=== PATIENT | female | born 1970 | race Caucasian/White ===

== ENCOUNTER 2020-08-12 13:26 | Outpatient (REF) | payer OTHER, SELFPAY ==
--- NOTE | ~2020-08-12 | MM_ITS ---
EXAMINATION: MM DIAGNOSTIC DIGITAL BREAST TOMOSYNTHESIS, BILATERAL US DIAGNOSTIC ULTRASOUND BREAST, LEFT CLINICAL INFORMATION: Due for yearly. Also ultrasound follow-up small complicated cyst anterior 1:00 position, likely apocrine metaplasia. The lifetime risk of breast cancer based on the Tyrer-Cuzick Model is 8%. COMPARISON: Mammography: 08/13/2019, 02/09/2019, 07/09/2018, 06/19/2018, 06/11/2017, 06/01/2016; targeted left breast ultrasound 02/09/2019, 08/13/2019. TECHNIQUE: Digital breast tomosynthesis is performed in both the craniocaudal and mediolateral oblique views along with computer-aided detection (CAD). Synthesized 2D images are generated from the tomosynthesis. Ultrasound left breast is targeted to the retroareolar upper outer breast. Grayscale imaging and color Doppler are performed without and with harmonics. FINDINGS: There are scattered areas of fibroglandular density (ACR BI-RADS breast composition Category b). There is no significant mass or architectural abnormality. No developing density. No abnormal calcifications. The axilla are unremarkable. The skin contours are smooth. Ultrasound left breast demonstrates a small stable complicated cyst 1:00 position 2 cm from nipple measuring only 0.5 x 0.3 cm. Again, there are avascular internal echoes of similar distribution. Margins are circumscribed. There is no associated internal or peripheral color flow. Results are discussed with the patient at time of visit. MM/MM tomosynthesis diagnostic BI IMPRESSION: 1. Mammography without significant change from prior studies. 2. Stable mildly complicated cyst anterior left breast 5 x 3 mm. ASSESSMENT: BI-RADS 2: Benign RECOMMENDATION: Routine annual mammography screening. This patient's information was entered into a reminder system with a target due date for their next mammogram.
== END 2020-08-12 13:27 | disposition home or self-care (01) ==
LOC: HO.MAMMO 13:26
PROVIDERS: PCP Family Medicine; Visit Provider Family Medicine
DX: N60.02 Solitary cyst of left breast (principal)
CPT/HCPCS: 76642; 77062; 77066

== ENCOUNTER 2020-11-03 11:49 | Outpatient (REF) | payer OTHER, SELFPAY ==
--- NOTE | ~2020-11-03 | US_ITS ---
EXAMINATION: US VENOUS ULTRASOUND WITH DOPPLER LOWER EXTREMITY, RIGHT CLINICAL INFORMATION: Pain COMPARISON: None TECHNIQUE: Ultrasound of the deep veins is performed from the hip to the calf with compression sonography and color and pulse Doppler assessment. Spectral analysis with color-flow imaging is performed. FINDINGS: There is normal venous compression and respiratory variation and augmented flow. The visualized common femoral vein, superficial femoral vein, profunda femoral vein, popliteal vein, and the trifurcation region shows no evidence of deep venous thrombosis. There is no significant popliteal fossa cyst. US/US venous duplex LE RT IMPRESSION: No DVT demonstrated in the right lower extremity.
--- NOTE | ~2020-11-03 | XR_ITS ---
EXAMINATION: XR KNEE, RIGHT CLINICAL INFORMATION: Pain right knee. COMPARISON: None. TECHNIQUE: 4 views of the right knee. FINDINGS: There is mild loss of medial and patellofemoral compartment joint space. There is a small anterior suprapatellar enthesophytes at the quadriceps tendon insertion. No abnormal joint effusion or loose body seen. No bony erosive changes. XR/XR knee RT 2V IMPRESSION: Mild degenerative changes medial and patellofemoral compartments. Small superior patellar enthesophyte. No abnormal joint effusion seen.
== END 2020-11-03 11:50 | disposition home or self-care (01) ==
LOC: HO.US 11:49
PROVIDERS: PCP Family Medicine; Visit Provider Emergency Medicine
DX: M79.604 Pain in right leg (principal); M25.561 Pain in right knee
CPT/HCPCS: 73560; 93971

== ENCOUNTER 2021-01-20 08:00 | Outpatient (REF) | payer OTHER, SELFPAY ==
--- NOTE | ~2021-01-20 | XR_ITS ---
EXAMINATION: XR KNEE, RIGHT CLINICAL INFORMATION: Knee pain COMPARISON: Radiographs right knee 11/03/2020 TECHNIQUE: Axial patellar view is performed. FINDINGS: The patellar is seated in the trochlear notch with no tilting and lateralization. There is no focal joint narrowing or erosive change or chondrocalcinosis. Normal bony mineralization. XR/XR knee RT 2V IMPRESSION: No patellar tilting and lateralization. No erosive changes patellofemoral joint.
== END 2021-01-20 08:01 | disposition home or self-care (01) ==
LOC: HO.HOSX 08:00
PROVIDERS: Visit Provider Physician Assistant
DX: M17.11 Unilateral primary osteoarthritis, right knee (principal)
CPT/HCPCS: 20610; 73560; 99202; J1040

== ENCOUNTER → 2021-03-03 09:59 | Outpatient (BNVA) | payer OTHER, SELFPAY | PROVIDERS: Visit Provider Physician Assistant | DX: M17.11 Unilateral primary osteoarthritis, right knee (principal) | CPT/HCPCS: 99212 ==

== ENCOUNTER 2021-03-14 13:00 | Outpatient (RCR) | payer OTHER, SELFPAY ==
--- NOTE | 2021-02-09 16:44 | MHC.PT.EP ---
[facility] [place] Office [place] Office [place] Office [address] [phone] F: [phone] F: [phone] F: [phone] F: [phone] Physical Therapy Plan of Care Date of Evaluation: Date of Surgery: Diagnosis: unilateral OA of R knee. Assessment: pt is a 50/yo F present to clinic for eval/treatment of unilateral OA of R knee. S/S are consistent w/ R knee dysfunction resulting in significantly decreased tolerance for WB activities like standing and ambulating, decreased reagan for seating for duration, difficulty with kneeling, bending, lifting objects off of the floor, and performing any household activities secondary to decreased ROM of R knee, decreased hip/knee strength, and patellar maltracking/tilt. Pt is deemed an appropriate candidate to receive skilled PT in order to address her physical limitations to improve her functional ability. Frequency and Duration: The patient will be seen 2 x / wk x 5 wks. Short Term Goals: initiate HEP I w/ compliance pt will reagan sitting for 30 mins w/ minimal to no difficulty pt will be able to stand for 30 mins w/ minimal to no difficulty Mcfp Goals: pt will be able to walk 2 blocks w/ mod to little bit of difficulty; initial - extreme difficulty or unable to perform (LEFI) pt will be able to negotiate 1 flight of stairs with little to no difficulty or pain; initial quite a bit of difficulty (LEFI) pt will be able to perform her usual work with little to no difficulty; initial quite a bit of difficulty (LEFI) pt will reagan standing for over an hour with mod to little bit of difficulty; initial extreme difficulty or unable to perform (LEFI) Treatment Plan: Modalities to reduce pain, spasms and effusion. Manual therapy to restore motion and function. Therapeutic exercise to improve strength and flexibility. Neuromuscular re-education for posture and balance. Therapeutic activities to return to functional activities of daily living. Electronically signed by: Ismael rGeene PT. Please sign and return to therapist. Thank you for your referral.
--- NOTE | 2021-10-30 11:21 | MHC.PT.DC ---
[facility] [place] Office [place] [facility] [place] [facility] [address] Ino Lockett [address] [phone] F: [phone] F: [phone] F: [phone] F: [phone] Physical Therapy Discharge Report Diagnosis: unilateral OA of R knee. Date of Surgery: Date of Evaluation: 02/09/21 Date of Discharge: 06/02/21 Treatments to Date: 4 Cancellations to Date: No Shows to Date: Discharge Status: Patient Elected to Stop Discharge Summary: Pt stopped treatment after 03/14 appointment. 03/14: pt performed her the/ex standing - pt reported minimal pain/discomfort and responded with appropriate fatigue. for next visit, cont progressing standing and stair activities. Pt expressed concerns over her ability to fly on her vacation d/t increased knee pain while sitting; Pt advised to contact her orto PA for any notes for accommodations; Pt in agreement. Electronically signed by: Osvaldo Navarrete PT Please sign and return to therapist. Thank you for your referral.
== END 2021-10-30 11:22 | disposition home or self-care (01) ==
LOC: HO.PTCHIC 13:00
PROVIDERS: PCP Family Medicine; Visit Provider Physician Assistant
DX: M17.11 Unilateral primary osteoarthritis, right knee (principal)
CPT/HCPCS: 97014; 97110; 97116; 97140; 97161

== ENCOUNTER 2021-08-17 12:27 | Outpatient (REF) | payer OTHER, SELFPAY ==
--- NOTE | ~2021-08-17 | MM_ITS ---
EXAMINATION: MM SCREENING DIGITAL BREAST TOMOSYNTHESIS, BILATERAL CLINICAL INFORMATION: Screening. Asymptomatic. The lifetime risk of breast cancer based on the Tyrer-Cuzick Model is 7%. COMPARISON: Mammography:08/12/2020 and studies dating back to 01/27/2013. TECHNIQUE: Digital breast tomosynthesis is performed in both the craniocaudal and mediolateral oblique views along with computer-aided detection (CAD). Synthesized 2D images are generated from the tomosynthesis. FINDINGS: There are scattered areas of fibroglandular density (ACR BI-RADS breast composition Category b). There is waxing and waning of circumscribed densities within the left breast with multiple ultrasounds in the past demonstrating simple and mildly complex cysts. No new suspicious grouping of calcifications or region of architectural distortion is identified. MM/MM tomosynthesis screening BI IMPRESSION: Waxing and waning of circumscribed densities in patient with ultrasounds demonstrating simple and complex cysts in the past. ASSESSMENT: BI-RADS 2: Benign RECOMMENDATION: Routine annual mammography screening. This patient's information was entered into a reminder system with a target due date for their next mammogram.
== END 2021-08-17 12:28 | disposition home or self-care (01) ==
LOC: HO.MAMMO 12:27
PROVIDERS: Visit Provider Family Medicine
DX: Z12.31 Encounter for screening mammogram for malignant neoplasm of breast (principal)
CPT/HCPCS: 77063; 77067

== ENCOUNTER → 2022-08-27 13:14 | Outpatient (BNVA) | payer OTHER, SELFPAY | PROVIDERS: PCP Family Medicine; Visit Provider Nurse Practitioner Family | DX: Z01.818 Encounter for other preprocedural examination (principal); K59.00 Constipation, unspecified | CPT/HCPCS: 99202 ==

== ENCOUNTER 2022-10-15 14:29 | Outpatient (REF) | payer OTHER, SELFPAY ==
--- NOTE | ~2022-10-15 | MM_ITS ---
EXAMINATION: MM SCREENING DIGITAL BREAST TOMOSYNTHESIS, BILATERAL CLINICAL INFORMATION: Screening. Asymptomatic. The lifetime risk of breast cancer based on the Tyrer-Cuzick Model is 6.8%. COMPARISON: Mammography: 08/17/2021 and studies dating back to 01/27/2013. TECHNIQUE: Digital breast tomosynthesis is performed in both the craniocaudal and mediolateral oblique views along with computer-aided detection (CAD). Synthesized 2D images are generated from the tomosynthesis. FINDINGS: There are scattered areas of fibroglandular density (ACR BI-RADS breast composition Category b). There is a circumscribed density about the anterior aspect of the left breast, similar to prior study but with waxing and waning densities shown to be cysts on multiple previous ultrasound studies. No suspicious dominant mass or suspicious grouping of microcalcifications is identified. MM/MM tomosynthesis screening BI IMPRESSION: No significant changes from prior exam. ASSESSMENT: BI-RADS 2: Benign. RECOMMENDATION: Routine annual mammography screening. This patient's information was entered into a reminder system with a target due date for their next mammogram.
== END 2022-10-15 14:30 | disposition home or self-care (01) ==
LOC: HO.MAMMO 14:29
PROVIDERS: Visit Provider Family Medicine
DX: Z12.31 Encounter for screening mammogram for malignant neoplasm of breast (principal)
CPT/HCPCS: 77063; 77067

== ENCOUNTER 2023-05-23 08:00 | Day surgery (SDC) | payer OTHER, SELFPAY ==
[2023-05-14 10:46] VITALS: BMI 30.6
--- NOTE | 2023-05-21 14:29 | HO.ANESPROP2 ---
Documented by User: Romelia Lilly NP 05/21/23 14:30 HPI - Anesthesia Eval Consult details Narrative: 52yo F for Colonoscopy ADR to judith and amide anesthesia - crying and shaking PMFSH Active Problems Active Problems: All Active Problems (Updated 05/14/23 @ 10:21 by Shari Garvin RN) Osteoarthritis of right knee (Acute) Past Medical History Medical History (Updated 05/14/23 @ 10:21 by Shari Garvin RN) Arthritis Allergic rhinitis Back pain Asthma Multiple allergies High blood pressure Surgical History Surgical History (Updated 05/14/23 @ 10:25 by Shari Garvin RN) Hx of tubal ligation Hx of bladder repair surgery Social History Social History Are you a primary care transition coordinator to a significant other at home: No Do you presently have visiting nurse or other home services: No Patient Tobacco Use Status: Never used Tobacco Use of substances other than those prescribed or required for medical reasons: No Have you been hit, kicked, punched, or otherwise hurt by someone within the past year? If so, by whom?: No Advance Directives: No Advance Directives Information Provided: Yes Advance Directives on File: No Recently lost weight without trying: No Eating poorly because of decreased appetite: No Nutrition Risks: No Nutritional Risk Patient : No : No Poor oral hygiene: No Current occupational status: employed Current occupation: [employer] Insecticide Meds Allergies Allergy/AdvReac Type Severity Reaction Status Date / Time procaine [From Novocain] Allergy Unknown Unknown Verified 08/27/22 13:19 Anesthetics - Amide Type - AdvReac Unknown CRYING/MAUREEN Unverified 08/27/22 13:19 Select A ING [Anesthetics - Amide Type] Anesthetics - Judith Type- AdvReac Unknown CRYING/MAUREEN Unverified 08/27/22 13:19 Parabens ING [Anesthetics - Judith Type] Home Medications Medication Instructions Recorded Confirmed Last Taken Type cholecalciferol (vitamin D3) 25 25 mcg PO DAILY 08/27/22 05/14/23 Unknown History mcg (1,000 unit) capsule (Vitamin D3) hydrochlorothiazide 25 mg tablet 25 mg PO DAILY 08/27/22 05/14/23 Unknown History fexofenadine 60 mg tablet (Jennifer 60 mg PO DAILY PRN Allergy Symptoms 05/14/23 05/14/23 Unknown History Allergy) magnesium oxide 500 mg capsule 1,000 mg PO BEDTIME 05/14/23 05/14/23 Unknown History omega-3 fatty acids-vitamin E 1 cap PO DAILY 05/14/23 05/23/23 05/22/23 08:00 History 1,000 mg-5 unit capsule Exam Height,Weight and Vital Signs: Height 5 ft 4 in Weight 80.739 kg Assessment and Plan Assessment Anesthesia Assessment: Chart Reviewed Documented by User: Harry Pacheco MD 05/23/23 08:49 PMFSH Past Medical History Medical History (Updated 05/14/23 @ 10:21 by Shari Garvin RN) Arthritis Allergic rhinitis Back pain Asthma Multiple allergies High blood pressure Family History Family history of problems with anesthesia: No Surgical History Surgical History (Updated 05/14/23 @ 10:25 by Shari Garvin RN) Hx of tubal ligation Hx of bladder repair surgery History of Problems with Anesthesia: No Social History Social History Are you a primary care transition coordinator to a significant other at home: No Do you presently have visiting nurse or other home services: No Patient Tobacco Use Status: Never used Tobacco Use of substances other than those prescribed or required for medical reasons: No Have you been hit, kicked, punched, or otherwise hurt by someone within the past year? If so, by whom?: No Advance Directives: No Advance Directives Information Provided: Yes Advance Directives on File: No Recently lost weight without trying: No Eating poorly because of decreased appetite: No Nutrition Risks: No Nutritional Risk Patient : No : No Poor oral hygiene: No Current occupational status: employed Current occupation: [employer] handed/[employer] Insecticide Meds Allergies Allergy/AdvReac Type Severity Reaction Status Date / Time procaine [From Novocain] Allergy Unknown Unknown Verified 08/27/22 13:19 Anesthetics - Amide Type - AdvReac Unknown CRYING/MAUREEN Unverified 08/27/22 13:19 Select A ING [Anesthetics - Amide Type] Anesthetics - Judith Type- AdvReac Unknown CRYING/MAUREEN Unverified 08/27/22 13:19 Parabens ING [Anesthetics - Judith Type] Home Medications Medication Instructions Recorded Confirmed Last Taken Type cholecalciferol (vitamin D3) 25 25 mcg PO DAILY 08/27/22 05/14/23 Unknown History mcg (1,000 unit) capsule (Vitamin D3) hydrochlorothiazide 25 mg tablet 25 mg PO DAILY 08/27/22 05/14/23 Unknown History fexofenadine 60 mg tablet (Jennifer 60 mg PO DAILY PRN Allergy Symptoms 05/14/23 05/14/23 Unknown History Allergy) magnesium oxide 500 mg capsule 1,000 mg PO BEDTIME 05/14/23 05/14/23 Unknown History omega-3 fatty acids-vitamin E 1 cap PO DAILY 05/14/23 05/23/23 05/22/23 08:00 History 1,000 mg-5 unit capsule Exam Airway Mallampati Class: II TM Dist: >3cm Neck ROM: Full Assessment and Plan Assessment Anesthesia Assessment: Anesthesia Plan Discussed Final Anesthetic Review Family History of Problems with Anesthesia: No History of Problems with Anesthesia: No NPO: Yes ASA Class: II Final Preanesthetic Review: No Changes in Pt Med Stat, Meds/Allgs Chart Reviewed, Consent Obtained/Reviewed and Anes Risks/Benef Reviewed Patient Risk: Low Procedure Risk: Low Anesthetic Plan Anesthetic Plan: MAC: Disposition: Standard PACU
[2023-05-23 08:26] VITALS: BMI 29.8
[2023-05-23 08:36] VITALS: BP 132/84; PULSE 68; RESP 16; TEMP 36.2; O2SAT 98
[2023-05-23] MEDS: Lactated Ringers 1,000 ML 100 ML IVCONT (08:52)
--- NOTE | 2023-05-23 09:11 | P.HPSUR_ITS ---
Pre-Procedural Eval Section A Date of Service: 05/23/23 Section B Chief Complaint: screening Relevant Family History (Specify if Yes): No Relevant Social History: None Present Medications: see Short Stay Collaborative assessment Medical History: Significant History (Arthritis Allergic rhinitis Back pain Asthma Multiple allergies High blood pressure) History of Previous Operations: Relevant previous surgery/procedure and date(s) (tubal ligation and bladder surgery) Allergies: Allergies Allergy/AdvReac Type Severity Reaction Status Date / Time procaine [From Novocain] Allergy Unknown Unknown Verified 05/23/23 08:51 Anesthetics - Amide Type - AdvReac Unknown CRYING/MAUREEN Verified 05/23/23 08:51 Select A ING [Anesthetics - Amide Type] Anesthetics - Judith Type- AdvReac Unknown CRYING/MAUREEN Verified 05/23/23 08:51 Parabens ING [Anesthetics - Judith Type] Review of Systems Sugical H&P ROS: Negative: Constitution, Cardiovascular, Respiratory, Neurological, Psychiatric, Hem-Onc, Allergic/Immunologic, Gastrointestinal, Genitourinary, Musculoskeletal, Integumentary, Endocrine and Eyes/Ears/Nose/Throat Exam Surgical H&P Exam: Normal: HEENT, Normal: Heart, Normal: Lungs, Normal: Extr emities, Normal: Abdomen, Normal: Skin and Normal: Neurological Plan Diagnosis/Plan: Unchanged I have reviewed the history and physical and performed a pertinent physical examination on my patient. No changes have occurred unless specified. Time Spent With Patient Time: Total time managing care of this patient today ____ minutes.
--- NOTE | 2023-05-23 09:11 | P.OP_ITS ---
Operative Note Operative Note Date of Service: 05/23/23 Narrative: Operative Information Procedure Description: Colonoscopy Indication: screening Anesthesia: MAC COLONOSCOPY Instrument: Olympus variable stiffness pediatric scope 190L Colonoscopy Monitoring: Vital signs and clinical assessment, continuous EKG monitoring, Pulse oximetry, Carbon Dioxide monitoring and blood pressure monitoring were done throughout the procedure. Colon withdrawal time was 9 minutes. Procedure: The patient was placed in the left lateral decubitis position and pre-procedure medications were administered. After a digital rectal examination of the ano-rectum, the video colonoscope was inserted into the rectum and advanced through the colon to the cecum/TI. The colonoscope was slowly withdrawn in a retrograde panoramic fashion and the colon mucosa was carefully examined including a retroflexed view of the rectum. Findings and interventions are described below. Procedure Difficulty: easy Findings: Terminal Ileum-normal Cecum:normal Ascending Colon: normal Transverse Colon -normal Descending Colon:normal Sigmoid Colon: normal Rectum: Retroflexion with small internal hemorrhoids, grade I Anorectum - normal Colon preparation: [place] Bowel Preparation Scale Right colon; 2 Transverse colon: 2 Left colon; 2 (0 = Unprepared colon segment with mucosa not seen due to solid stool that cannot be cleared. 1 = Portion of mucosa of the colon segment seen, but other areas of the colon segment not well seen due to staining, residual stool and/or opaque liquid. 2 = Minor amount of residual staining, small fragments of stool and/or opaque liquid, but mucosa of colon segment seen well. 3 = Entire mucosa of colon segment seen well with no residual staining, small fragments of stool or opaque liquid) Impression and Post Procedure Diagnosis: internal hemorrhoids Plan: High fiber diet leaflet Avoid straining at stool, epsom salts and sitz bath, anusol supps or cream Repeat Colonoscopy in 10 years or earlier if clinically indicated Above findings were reviewed with the patient and relevant handouts were provided if indicated.
[2023-05-23 09:39] VITALS: BP 108/63; PULSE 73; RESP 16; TEMP 36.1; O2SAT 97
[2023-05-23 10:00] VITALS: BP 118/78; PULSE 65; RESP 18; TEMP 36.1; O2SAT 97
== END 2023-05-23 10:18 | disposition home or self-care (01) ==
PROVIDERS: PCP Family Medicine; Visit Provider Internal Medicine Gastroenterology
PROC: 0DJD8ZZ Inspection of Lower Intestinal Tract, Via Natural or Artificial Opening Endoscopic (ICD-10-PCS; CPT 45378; principal; 2023-05-23 09:50)
DX: Z12.11 Encounter for screening for malignant neoplasm of colon (principal); K64.0 First degree hemorrhoids; I10 Essential (primary) hypertension; J45.909 Unspecified asthma, uncomplicated; M17.11 Unilateral primary osteoarthritis, right knee; M54.9 Dorsalgia, unspecified; Z79.899 Other long term (current) drug therapy; Z88.8 Allergy status to other drugs, medicaments and biological substances; Z98.890 Other specified postprocedural states
CPT/HCPCS: 45378; J2704

== ENCOUNTER → 2023-05-23 08:00 | Outpatient (BNV) | payer OTHER, SELFPAY | PROVIDERS: PCP Family Medicine; Visit Provider Internal Medicine Gastroenterology | DX: Z12.11 Encounter for screening for malignant neoplasm of colon (principal); K64.0 First degree hemorrhoids | CPT/HCPCS: 45378 ==

== ENCOUNTER 2023-07-12 10:35 | Outpatient (REF) | payer SELFPAY ==
[2023-07-12 11:24] LABS: MANUAL DIFF FLAG NO
[2023-07-12 11:57] LABS: Basophils Absolute Auto 0.1 X10*3/uL (0.0-0.2); Basophils Percent Auto 1.1 % (0-2); Eosinophils Absolute Auto 0.4 X10*3/uL (0.0-0.4); Eosinophils Percent Auto 5.2 % (0-4); Hematocrit 40.3 % (37.0-47.0); Hemoglobin 13.2 g/dl (12.0-16.0); Imm Gran Abs Auto 0.02 X10*3/uL (0.00-0.03); Imm Gran Pct Auto 0.3 % (0.0-0.4); Lymphocytes Absolute Auto 2.7 X10*3/uL (1.2-4.9); Lymphocytes Percent Auto 36.2 % (20-40); Mean Corpuscular HGB Conc 32.8 g/dl (31.0-35.0); Mean Corpuscular Hemoglobin 28.9 pg (27.0-33.0); Mean Corpuscular Volume 88.4 fL (80.0-98.0); Mean Platelet Volume 11.4 fL (9.4-12.3); Monocytes Absolute Auto 0.6 X10*3/uL (0.1-1.2); Monocytes Percent Auto 7.4 % (2-11); Neutrophils Absolute Auto 3.7 x10*3/uL (2.0-8.3); Neutrophils Percent Auto 49.8 % (45-73); Platelet Count 310 X10*3/uL (160-400); Red Blood Count 4.56 X10*6/uL (4.20-5.50); Red Cell Distribution Width 12.4 % (11.0-16.0); White Blood Count 7.5 X10*3/uL (4.8-10.8)
[2023-07-12 14:26] LABS: Alanine Aminotransferase 11 U/L (0-31); Albumin Level 4.2 g/dL (3.5-5.0); Alkaline Phosphatase 67 U/L (39-117); Anion Gap 10 (12-20); Aspartate Amino Transferase 20 U/L (5-31); Bilirubin Direct 0.2 mg/dL (0.0-0.5); Bilirubin Total 0.7 mg/dL (0.0-1.0); Blood Urea Nitrogen 11 mg/dL (9-16); Calcium 9.6 mg/dL (8.4-10.2); Carbon Dioxide 28 mmol/L (22-29); Chloride 106 mmol/L (96-108); Cholesterol 151 mg/dL (<200); Estimated Glomerular Filt Rate > 60; Glucose Random 97 mg/dL (60-115); HDL Cholesterol 49 mg/dL (>40); LDL Cholesterol Calculated 87 mg/dL (<100); Magnesium 2.4 mg/dL (1.6-2.6); Potassium 4.1 mmol/L (3.3-5.1); Sodium 140 mmol/L (135-145); Total Protein 7.6 g/dL (6.5-8.0); Triglycerides 77 mg/dL (<150)
[2023-07-12 14:46] LABS: TSH reflex Free T4 1.05 uIU/mL (0.32-4.0); Vitamin D 25-OH Total 37.4 ng/mL (>30)
[2023-07-12 15:10] LABS: Vitamin B12 542 pg/mL (200-900)
[2023-07-16 08:59] LABS: RPR Rapid Plasma Reagin NON-REACTIVE (NON-REACTIVE)
== END 2023-07-12 10:36 | disposition home or self-care (01) ==
LOC: HO.HHCL 10:35
PROVIDERS: Visit Provider Family Medicine
DX: Z00.00 Encounter for general adult medical examination without abnormal findings (principal); R53.83 Other fatigue; R41.3 Other amnesia
CPT/HCPCS: 36415; 80048; 80061; 80076; 82306; 82607; 83735; 84443; 85025; 86592

== ENCOUNTER 2023-11-25 15:04 | Outpatient (REF) | payer OTHER, SELFPAY | END 2023-11-25 15:05 | disposition home or self-care (01) | LOC: HO.MAMMO 15:04 | PROVIDERS: PCP Family Medicine; Visit Provider Family Medicine | DX: Z12.31 Encounter for screening mammogram for malignant neoplasm of breast (principal) | CPT/HCPCS: 77063; 77067 ==

== ENCOUNTER → 2023-11-25 15:45 | Outpatient (BNV) | payer OTHER, SELFPAY | PROVIDERS: PCP Family Medicine; Visit Provider Radiology Diagnostic Radiology | DX: Z12.31 Encounter for screening mammogram for malignant neoplasm of breast (principal) | CPT/HCPCS: 77063; 77067 ==

== ENCOUNTER 2024-07-28 08:40 | Outpatient (REF) | payer OTHER, SELFPAY ==
--- OUTSIDE RECORDS SUMMARY | 2024-07-28 08:55 | XMS_ITS | Encounter Summary ---
Author Organization [employer] Address [address] [place] [address] 7 [place] [address] Care Team Providers Care Electronic Masking System Operator Name Role Phone Adriane Marte MD Primary Care Provider [phone] Alvaro Alaniz MD Unavailable [phone] Reason for Referral * Consultation (Routine) - Authorized Specialty Diagnoses / Procedures Referred By Contjessica t Referred To Contact Orthopaedic Surgery Diagnoses Localized pain of left shoulder joint Adriane Marte MD [address] [place] [phone] Phone: tel: fax: [facility] [address] [place] [address] Phone: tel: Referral ID Status Reason Start Date Expiration Date Visits Requested Visits Authorized [id number] Authorized Specialty Services Required 07/15/2024 07/15/2025 1 1 Reason for Visit * Reason Comments Annual Exam Encounter Details Date Type Department Care Team (Late st Contact Info) Description 07/15/2024 2:15 PM EST Office Visit [facility] [address] [place] [address] [phone] Adriane Marte MD [address] [place], [place] [phone] Primary hypertension (Primary Dx); Mild intermittent asthma, unspecified whether complicated; Hx of abnormal mammogram; Colon cancer screening; Post-menopausal; Localized pain of left shoulder joint; Numbness and tingling in both hands; Seasonal allergies; Canker sores oral; Other fatigue; Vitamin D deficiency; Dietary counseling; Exercise counseling; Class 1 obesity with body mass index (BMI) of 31.0 to 31.9 in adult, unspecified obesity type, unspecified whether serious comorbidity present; Cardiac risk counseling; Encounter for immunization; Other specified health status Social History Tobacco Use Types Packs/Day Years Used Date Smoking Tobacco: Never Smokeless Tobacco: Never Depression Answer Date Recorded Patient Health Questionnaire-9 Score 0 07/15/2024 Patient Health Questionnaire-9 Score 0 07/15/2024 Last PHQ-9: Questionnaire Data Not on file 0 07/15/2024 Housing Stability Answer Date Recorded What is your housing situation today? I have mi osorio 07/15/[address] you li ve. Do you have problems with any of the following? None of the above 07/15/2024 Food Insecurity Answer Date Recorded Within the past 12 months, y ou worried that your food would run out before you got money to buy more: Never True 07/15/2024 Within the past 12 months,th e food you bought just didn't last and you didn't have enough money to get more: Never True Transportation Answer Date Recorded In the past 12 months, has l ack of transportation kept you from medical appts, meetings, work or from getting things needed for daily living? No 07/15/2024 Utilities Answer Date Recorded In the past 12 months, has t he electric, gas, oil or water company threatened to shut off services in your home? No 07/15/2024 Depression Answer Date Recorded Patient Health Questionnaire-2 Score 0 07/15/2024 Internet Access Answer Date Recorded Internet Access Q1 No 07/15/2024 Internet Access Q2 I do not want or need it 06/25 Comments Unknown Sex and Gender Information Value Date Recorded Sex Assigned at Female 04/23/2022 10:14 AM EDT Legal Sex Female 10:14 AM EDT Gender Identity Female 04/23/2022 10:14 AM EDT Sexual Orientation Straight 04/23/2022 10 :14 AM EDT documented as of this encounter Last Filed Vital Signs Vital Sign Reading Time Taken Comments Blood Pressure 142/88 07/15/2024 3:30 PM EST Pulse 73 07/15/2024 2:24 PM EST Temperature 35.8 ??C (96.5 ??F) 07/15/2024 2:24 PM ES T Respiratory Rate 18 07/15/2024 2:24 PM EST Oxygen Saturation 98% 07/15/2024 2:24 PM EST Inhaled Oxygen Concentration - - Weight 81 kg (178 lb 9.6 oz) 07/15/2024 2:24 PM EST Height 160 cm (5' 3 ) 07/15/2024 2:24 PM EST Body Mass Index 31.64 07/15/2024 2:24 PM EST documented in this encounter Progress Notes * Adriane Marte MD - 07/15/2024 2:15 PM EST Mark Ramirez is a 53 y.o. female with PMHx of asthma and hypertension who presents to the office today for chronic medical conditions and comprehensive annual evaluation. Last seen about a year ago for annual evaluation on 07/04/23 Pt reports for the past week and a half she has had numbness and pain in both her hands. She notes worse in the right. She also reports pain to her left shoulder that also occurred at the same onset time. Denies any trauma or injury. She reports she as been getting canker sores for years intermittently and currently has a small onein her mouth currently. Pt reports she as been getting hot flashes, mood changes and dizziness. She has not had her menstrual cycle since she was 47 years old. She also notes she has felt a bump in her right axilla. Agrees to Flu, Hep B and Pneumonia vaccines today. Declines COVID. Social History Tobacco: denied Drugs: none Alcohol: No Suicide/Depression: The patient denies any present symptoms of depression or anxiety. Review of Systems Constitutional: Negative for fatigue, fever and unexpected weight change. Respiratory: Negative for cough. Cardiovascular: Negative for chest pain. Gastrointestinal: Negative for abdominal pain. Genitourinary: Negative for difficulty urinating. Menopausal Musculoskeletal: Positive for arthralgias. Current Outpatient Medications: acyclovir (Zovirax) 800 MG tablet, Take 3 tabs a day for 2 days, Disp: 6 tablet, Rfl: 3 cholecalciferol (D3-1000) 25 MCG (1000 UT) capsule, Take 1 capsule (25 mcg) by mouth Once per day.,Disp: 90 capsule, Rfl: 0 fluticasone (Flonase) 50 MCG/ACT nasal spray, Administer 1-2 sprays into each nostril Once per day.Shake gently. Before first use, prime pump. After use, clean tip and replace cap., Disp: 16 g, Rfl:2 hydroCHLOROthiazide (HYDRODiuril) 25 MG tablet, TAKE 1 TABLET BY MOUTH EVERY DAY, Disp: 90 tablet, Rfl: 3 Allergies Allergen Reactions Lidocaine Past Medical History: Diagnosis Date Allergic rhinitis 12/19/2012 Cervical intraepithelial neoplasia grade 1 12/19/2012 Last Pap 06/2016 NILM, HPV negative. Repeat done 05/21/22 NILM, HPV negative, resume regular testing Chronic low back pain 11/14/2017 Mild intermittent asthma 03/25/2017 Well controlled Primary hypertension 06/28/2024 -Blood pressure is at goal -Continue lifestyle modifications -Continue current medications Past Surgical History: Procedure Laterality Date BLADDER SUSPENSION TUBAL LIGATION Family History Problem Relation Name Age of Onset Other (heart disease) Mother Cancer Mother Alzheimer's disease Father Other (coagulation) Father Objective Visit Vitals BP (!) 142/88 Pulse 73 Temp 96.5 ??F (35.8 ??C) (Temporal) Resp 18 Ht 5' 3 (1.6 m) Wt 178 lb 9.6 oz (81 kg) SpO2 98% BMI 31.64 kg/m?? Smoking Status Never BSA 1.9 m?? Physical Exam Constitutional: Appearance: Normal appearance. HENT: Head: Normocephalic. Right Ear: Tympanic membrane normal. Left Ear: Tympanic membrane normal. Mouth/Throat: Pharynx: Oropharynx is clear. Eyes: Pupils: Pupils are equal, round, and reactive to light. Cardiovascular: Rate and Rhythm: Normal rate and regular rhythm. Heart sounds: Normal heart sounds. Pulmonary: Effort: Pulmonary effort is normal. Breath sounds: Normal breath sounds. Chest: Breasts: Leonardo Score is 5. Breasts are symmetrical. Right: Normal. No inverted nipple, mass, nipple discharge or skin change. Left: Normal. No inverted nipple, mass, nipple discharge or skin change. Abdominal: General: Abdomen is flat. Palpations: There is no mass. Tenderness: There is no abdominal tenderness. Musculoskeletal: General: Normal range of motion. Cervical back: Normal range of motion and neck supple. Lymphadenopathy: Cervical: No cervical adenopathy. Upper Body: Right upper body: No supraclavicular or axillary adenopathy. Left upper body: No supraclavicular or axillary adenopathy. Skin: General: Skin is warm and dry. Findings: Lesion: right axilla;. Neurological: General: No focal deficit present. Mental Status: She is alert. Psychiatric: Behavior: Behavior normal. 53 y.o. female annual evaluation. Problem List Items Addressed This Visit Primary hypertension - Primary -Blood pressure slightly above goal -Continue lifestyle modifications -Continue current medications -will restart hydroCHLOROthiazide (HYDRODiuril) 25 MG 07/15/24 -follow-up in 3 months -labs ordered 07/15/24 Relevant Medications hydroCHLOROthiazide (HYDRODiuril) 25 MG tablet Other Relevant Orders Albumin, Random Urine W/Creatinine Basic Metabolic Panel Mild intermittent asthma Well controlled Hx of abnormal mammogram Mammogram on 02/09/2019: BI-RADS 3. Showed 1 simple cyst on L breast. Mammogram on 02/09/2019 BI-RADS 3. Showed 3 simple cysts on L breast. Repeat mammo on 08/12/20 BI-RADS 2 benign. Showed no significant changes from prior studies, stable mildly complicated cyst 3 x 5 mm on L breast, BIRADS 2 10/15/22 BIRADS 1 11/25/23 Colon cancer screening colonoscopy done 05/23/[address] Alaniz, reccommended repeat in 10 years Post-menopausal Final Menstrual Period: at 47 y.o. Symptoms: hot flashes, moodiness Risk factors for osteoporosis: none -USPTF recommends DEXA be preformed on all women > 65 years and women younger than 65 who have gone through menopause and are at increased risk of an osteoporotic fracture, as estimated by clinical risk assessment. -Discussed with the patient all the options for osteoporosis prevention and advised: -Ca+D supplements 1200 mg po qd/800 MIU -Weight bearing exercises -Adequate protein intake -Supplements may include magnesium, omega-3 -DEXA done: not age applicable. Localized pain of left shoulder joint Pain and decreased ROM x1.5 weeks. -ordered XR 07/15/24 -referred to Orthopedics 07/15/24 Numbness and tingling in both hands Symptom onset gradual over the past 1.5 weeks. Discussed likely carpel tunnel syndrome. -will try brace and follow-up in 2 weeks 07/15/24. Seasonal allergies Controlled on fluticasone (Flonase) 50 MCG/ACT nasal spray Relevant Medications fluticasone (Flonase) 50 MCG/ACT nasal spray Canker sores oral Discussed getting OTC oral gel ad applying it as soon as lesion is about to appear. Other fatigue -ordered routine labs 07/15/24 Relevant Orders Vitamin D, 25-Hydroxy, Total, Immunoassay CBC auto differential TSH W/Reflex to FT4 Vitamin B12/Folate, Serum Panel Vitamin D deficiency Lab Results Component Value Date [id number] 37.4 07/12/2023 -ordered repeat lab 07/15/24 -prescribed cholecalciferol (D3-1000) 25 MCG (1000 UT) capsule 07/15/24 Relevant Medications cholecalciferol (D3-1000) 25 MCG (1000 UT) capsule Dietary counseling Dietary Recommendations: Fruits, vegetables, whole grains, protein foods, and fat-free or low-fat dairy products are healthychoices. Eat different types of protein foods in your diet. This can include seafood, lean meats, poultry, beans, peas, lentils, nuts, seeds, soy products, and eggs. Limit foods and beverages higher in added sugars, saturated fat, and sodium. Exercise counseling Exercise Recommendations: At least 150 minutes of moderate-intensity physical activity per week, or an equivalent combinationof moderate- and vigorous-intensity activity Overweight -ordered routine labs 07/15/24 Cardiac risk counseling Calculated 07/15/24: low risk The 10-year ASCVD risk score (Jack RUTLEDGE, et al., 2019) is: 1.3% Values used to calculate the score: Age: 53 years Sex: Female Is Non- : No Diabetic: No Tobacco smoker: No Systolic Blood Pressure: 132 mmHg Is BP treated: No HDL Cholesterol: 49 mg/dL Total Cholesterol: 151 mg/dL Lab Results Component Value Date LDLCHOLCAL 87 07/12/2023 -Atherosclerotic Cardiovascular Disease (ASCVD) Risk Calculator is intended for a person age 40-79 without ASCVD and with LDL-cholesterol < 190/mg/dl to assesses the chances of developing heart disease over the next 10 years. -Tobacco cessation: not applicable -Statin therapy:N/A -Importance of moderate physical activity and nutrition interventions discussed. -ordered FLP and HFP 07/15/24 Other specified health status -next comprehensive annual evaluation due after 07/15/25 -eye care facilitated by [facility] -dental home is [facility] -healthcare proxy paper given 07/04/23, filed 07/15/24 Other Visit Diagnoses Encounter for immunization Relevant Orders PCV-20 VACCINE 6 wks + FLU VACCINE TRIVALENT (Fluarix) 6 mo + HEPATITIS B VACCINE ADULT 20 yrs + Annual Evaluation -Normal growth and development. -Anticipatory guidance discussed. -Preventative care / harm reduction discussed. Follow up in about 3 months (around 10/13/2024) for BP check. I, Jerome Rowley, am serving as a scribe to document services personally performed by Dr. Sandoval, based on the patient's response to questions by provider and providers statements to me. documented in this encounter Miscellaneous Notes * Assessment & Plan Note - Jerome Rowley - 07/15/2024 3:34 PM ESTAssociated Problem(s): Post-menopausal Final Menstrual Period: at 47 y.o. Symptoms: hot flashes, moodiness Risk factors for osteoporosis: none -USPTF recommends DEXA be preformed on all women > 65 years and women younger than 65 who have gone through menopause and are at increased risk of an osteoporotic fracture, as estimated by clinical risk assessment. -Discussed with the patient all the options for osteoporosis prevention and advised: -Ca+D supplements 1200 mg po qd/800 MIU -Weight bearing exercises -Adequate protein intake -Supplements may include magnesium, omega-3 -DEXA done: not age applicable. * Assessment & Plan Note - Jerome Rowley - 07/15/2024 3:32 PM ESTAssociated Problem(s): Primary hypertension -Blood pressure slightly above goal -Continue lifestyle modifications -Continue current medications -will restart hydroCHLOROthiazide (HYDRODiuril) 25 MG 07/15/24 -follow-up in 3 months -labs ordered 07/15/24 * Assessment & Plan Note - Jerome Rowley - 07/15/2024 3:08 PM ESTAssociated Problem(s): Localized pain of left shoulder joint Pain and decreased ROM x1.5 weeks. -ordered XR 07/15/24 -referred to Orthopedics 07/15/24 * Assessment & Plan Note - Jerome Rowley - 07/15/2024 3:08 PM ESTAssociated Problem(s): Canker sores oral Discussed getting OTC oral gel ad applying it as soon as lesion is about to appear. * Assessment & Plan Note - Jerome Rowley - 07/15/2024 3:07 PM ESTAssociated Problem(s): Other fatigue -ordered routine labs 07/15/24 * Assessment & Plan Note - Jerome Rowley - 07/15/2024 3:06 PM ESTAssociated Problem(s): Vitamin D deficiency Lab Results Component Value Date [id number] 37.4 07/12/2023 -ordered repeat lab 07/15/24 -prescribed cholecalciferol (D3-1000) 25 MCG (1000 UT) capsule 07/15/24 * Assessment & Plan Note - Jerome Rowley - 07/15/2024 3:05 PM ESTAssociated Problem(s): Numbness and tingling in both hands Symptom onset gradual over the past 1.5 weeks. Discussed likely carpel tunnel syndrome. -will try brace and follow-up in 2 weeks 07/15/24. * Assessment & Plan Note - Jerome Rowley - 07/15/2024 2:50 PM ESTAssociated Problem(s): Overweight -ordered routine labs 07/15/24 * Assessment & Plan Note - Jerome Rowley - 07/15/2024 2:50 PM ESTAssociated Problem(s): Cardiac risk counseling Calculated 07/15/24: low risk The 10-year ASCVD risk score (Jack RUTLEDGE, et al., 2019) is: 1.3% Values used to calculate the score: Age: 53 years Sex: Female Is Non- : No Diabetic: No Tobacco smoker: No Systolic Blood Pressure: 132 mmHg Is BP treated: No HDL Cholesterol: 49 mg/dL Total Cholesterol: 151 mg/dL Lab Results Component Value Date LDLCHOLCAL 87 07/12/2023 -Atherosclerotic Cardiovascular Disease (ASCVD) Risk Calculator is intended for a person age 40-79 without ASCVD and with LDL-cholesterol < 190/mg/dl to assesses the chances of developing heart disease over the next 10 years. -Tobacco cessation: not applicable -Statin therapy:N/A -Importance of moderate physical activity and nutrition interventions discussed. -ordered FLP and HFP 07/15/24 * Assessment & Plan Note - Jerome Rowley - 07/15/2024 2:38 PM ESTAssociated Problem(s): Seasonal allergies Controlled on fluticasone (Flonase) 50 MCG/ACT nasal spray * Assessment & Plan Note - Jerome Rowley - 07/15/2024 2:25 PM ESTAssociated Problem(s): Mild intermittent asthma Well controlled * Assessment & Plan Note - Jerome Rowley - 07/15/2024 2:25 PM ESTAssociated Problem(s): Hx of abnormal mammogram Mammogram on 02/09/2019: BI-RADS 3. Showed 1 simple cyst on L breast. Mammogram on 02/09/2019 BI-RADS 3. Showed 3 simple cysts on L breast. Repeat mammo on 08/12/20 BI-RADS 2 benign. Showed no significant changes from prior studies, stable mildly complicated cyst 3 x 5 mm on L breast, BIRADS 2 10/15/22 BIRADS 1 11/25/23 * Assessment & Plan Note - Jerome Rowley - 07/15/2024 2:25 PM ESTAssociated Problem(s): Colon cancer screening colonoscopy done 05/23/[address] Alaniz, reccommended repeat in 10 years * Assessment & Plan Note - Jerome Rowley - 07/15/2024 2:24 PM ESTAssociated Problem(s): Exercise counseling Exercise Recommendations: At least 150 minutes of moderate-intensity physical activity per week, or an equivalent combinationof moderate- and vigorous-intensity activity * Assessment & Plan Note - Jerome Rowley - 07/15/2024 2:24 PM ESTAssociated Problem(s): Dietary counseling Dietary Recommendations: Fruits, vegetables, whole grains, protein foods, and fat-free or low-fat dairy products are healthychoices. Eat different types of protein foods in your diet. This can include seafood, lean meats, poultry, beans, peas, lentils, nuts, seeds, soy products, and eggs. Limit foods and beverages higher in added sugars, saturated fat, and sodium. * Assessment & Plan Note - Jerome Rowley - 07/15/2024 2:23 PM ESTAssociated Problem(s): Other specified health status -next comprehensive annual evaluation due after 07/15/25 -eye care facilitated by [facility] -dental home is [facility] -healthcare proxy paper given 07/04/23, filed 07/15/24 documented in this encounter Plan of Treatment Upcoming Encounters Date Type Department Care Team (Late st Contact Info) Description 10/19/2024 11:00 AM EDT Office Visit [facility] [address] [place] [address] Adriane Marte MD [address] [place], [place] [phone] Scheduled Orders Name Type Priority Associated Diagnoses Orde r Schedule Albumin, Random Urine W/Creatinine Lab Routine Primary hypertension Expected: 07/15/2024 (Approximate), Expires: 07/15/2025 Hepatic Function Panel Lab Routine Class 1 obesity with body mass index (BMI) of 31.0 to 31.9 in adult, unspecified obesity type, unspecified whether serious comorbidity present Expected: 07/15/2024 (Approximate), Expires: 07/15/2025 Lipid Panel, Standard Lab Routine Class 1 obesity with body mass index (BMI) of 31.0 to 31.9 in adult, unspecified obesity type, unspecified whether serious comorbidity present Expected: 07/15/2024 (Approximate), Expires: 07/15/2025 Basic Metabolic Panel Lab Routine Primary hypertension Expected: 07/15/2024 (Approximate), Expires: 07/15/2025 Vitamin D, 25-Hydroxy, Total, Immunoassay Lab Routine Other fatigue Expected: 07/15/2024 (Approximate), Expires: 07/15/2025 CBC auto differential Lab Routine Other fatigue Expected: 07/15/2024, Expires: 07/15/2025 TSH W/Reflex to FT4 Lab Routine Other fatigue Expected: 07/15/2024 (Approximate), Expires: 07/15/2025 Vitamin B12/Folate, Serum Panel Lab Routine Other fatigue Expected: 07/15/2024, Expires: 07/15/2025 XR Shoulder 2+ Views Left Imaging Routine Localized pain of left shoulder joint Expected: 07/15/2024, Expires: 07/15/2025 Scheduled Referrals Name Type Priority Associated Diagnoses Order Schedule Referral to Orthopaedic Surgery Outpatient Referral Routine Localized pain of left shoulder joint Expected: 07/15/2024 (Approximate), Expires: 07/15/2025 documented as of this encounter Visit Diagnoses Diagnosis Primary hypertension- Primary Unspecified essential hypertension Mild intermittent asthma, unspecified whether complicated Hx of abnormal mammogram Colon cancer screening Special screening for malignant neoplasms, colon Post-menopausal Asymptomatic postmenopausal status (age-related) (natural) Localized pain of left shoulder joint Numbness and tingling in both hands Seasonal allergies Allergic rhinitis, cause unspecified Canker sores oral Oral aphthae Other fatigue Vitamin D deficiency Dietary counseling Dietary surveillance and counseling Exercise counseling Class 1 obesity with body mass index (BMI) of 31.0 to 31.9 in adult, unspecified obesity type, unspecified whether serious comorbidity present Cardiac risk counseling Encounter for immunization Other specified health status documented in this encounter Additional Health Concerns Assessment Noted Time PHQ-9 Depression Total Score: 0 07/15/19 25 2:27 PM EST documented as of this encounter Care Teams Electronic Masking System Operator Relationship Specialty Start Date End Date Adriane Marte MD [address] [place] [id number] PCP - General Family Medicine 01/08/14 Alvaro Alaniz MD [address] [place] [address] [address] [place] [address] Gastroenterology 06/28/24 documented as of this encounter
--- OUTSIDE RECORDS SUMMARY | 2024-07-28 08:55 | XMS_ITS | Encounter Summary ---
Author Organization [employer] [facility] Address [address] [place] [address] [address] [place] [address] Care Team Providers Care Corporate Librarian Name Role Phone Adriane Marte MD Primary Care Provider [phone] Alvaro Alaniz MD Unavailable [phone] Reason for Visit * Reason Comments Med Refill Encounter Details Date Type Department Care Team (Late st Contact Info) Description 07/18/2022 Refill [facility] [address] [place] [phone] Adriane Marte MD [address] [place] [phone] Social History Tobacco Use Types Packs/Day Years Used Date Smoking Tobacco: Never Assessed Comments Unknown Sex and Gender Information Value Date Recorded Sex Assigned at Female 04/23/2022 10:14 AM EDT Legal Sex Female 10:14 AM EDT Gender Identity Female 04/23/2022 10:14 AM EDT Sexual Orientation Straight 04/23/2022 10 :14 AM EDT documented as of this encounter Plan of Treatment Upcoming Encounters Date Type Department Care Team (Late st Contact Info) Description 10/19/2024 11:00 AM EDT Office Visit [facility] [address] [place] [address] [phone] Adriane Marte MD [address] [place] [phone] documented as of this encounter Visit Diagnoses Not on filedocumented in this encounter Care Teams Corporate Librarian Relationship Specialty Start Date End Date Adriane Marte MD [address] [place] [id number] PCP - General Family Medicine 01/08/14 Alvaro Alaniz MD [address] [place] [address] 3rd [place] [address] Gastroenterology 06/28/24 documented as of this encounter
--- OUTSIDE RECORDS SUMMARY | 2024-07-28 08:55 | XMS_ITS | Encounter Summary ---
Author Organization [employer] Address [address] [facility] 7[address] [place] [address] Care Team Providers Care Continuous Dryout Operator Helper Name Role Phone Adriane Marte MD Primary Care Provider [phone] Alvaro Alaniz MD Unavailable [phone] Reason for Visit * Reason Comments Pre-visit Planning Pre-visit planning - LVM Encounter Details Date Type Department Care Team ([facility] st Contact Info) Description 07/03/2024 Patient Outreach [facility] [address] [place], [place] [phone] Adriane Marte MD [address] [place] [address] Pre-visit Planning (Pre-visit planning - LVM ) Social History Tobacco Use Types Packs/Day Years Used Date Smoking Tobacco: Never Smokeless Tobacco: Never Housing Stability Answer Date Recorded What is your housing situation today? I have mi osorio 07/04/[address] you li ve. Do you have problems with any of the following? Not on file 07/04/2023 Food Insecurity Answer Date Recorded Within the past 12 months, y ou worried that your food would run out before you got money to buy more: Never True 07/04/2023 Within the past 12 months,th e food you bought just didn't last and you didn't have enough money to get more: Never True 04/2024 Transportation Answer Date Recorded In the past 12 months, has l ack of transportation kept you from medical appts, meetings, work or from getting things needed for daily living? No 07/04/2023 Utilities Answer Date Recorded In the past 12 months, has t he electric, gas, oil or water company threatened to shut off services in your home? No 07/04/2023 Depression Answer Date Recorded Patient Health Questionnaire-2 Score 0 07/04/2023 Comments Unknown Sex and Gender Information Value Date Recorded Sex Assigned at Female 04/23/2022 10:14 AM EDT Legal Sex Female 10:14 AM EDT Gender Identity Female 04/23/2022 10:14 AM EDT Sexual Orientation Straight 04/23/2022 10 :14 AM EDT documented as of this encounter Progress Notes * Brianna Deras - 07/03/2024 11:28 AM EST CC Brianna Alaniz placed outbound call to patient to complete pre-visit planning. No answer at this time. Patient name and were not confirmed. CC left voicemail requesting return call. Direct contact information provided. documented in this encounter Plan of Treatment Upcoming Encounters Date Type Department Care Team (Late st Contact Info) Description 10/19/2024 11:00 AM EDT Office Visit [facility] [address] [place] [phone] Adriane Marte MD [address] [place] [phone] documented as of this encounter Visit Diagnoses Not on filedocumented in this encounter Care Teams Continuous Dryout Operator Helper Relationship Specialty Start Date End Date Adriane Marte MD [address] [place] [phone] PCP - General Family Medicine 01/08/14 Alvaro Alaniz MD [address] [place] [address] Drive 3rd [place] [address] Gastroenterology 06/28/24 documented as of this encounter
--- OUTSIDE RECORDS SUMMARY | 2024-07-28 08:56 | XMS_ITS | Encounter Summary ---
Author Organization [employer] Address [address] [facility] [address]t [place] [address] Care Team Providers Care Ux Developer Name Role Phone Adriane Marte MD Primary Care Provider [phone] Alvaro Alaniz MD Unavailable [phone] Encounter Details Date Type Department Care Team ([facility] st Contact Info) Description 11/28/2023 Abstract [facility] [address] [place], [place] [phone] Adriane Marte MD [address] [place], [place] [phone] Social History Tobacco Use Types Packs/Day Years [...] Description 10/19/2024 11:00 AM EDT Office Visit [facility] [address] [place] [address] Adriane Marte MD [address] [place] [address] documented as of this encounter Procedures Procedure Name Priority Date/Time Associated Diagnosis Comments MAMMOGRAPHY Routine 11/28/2023 3:41 PM EDT documented in this encounter Results * Mammography (11/28/2023 3:41 PM EDT) Mammogram BIRADS 1 Normal, Abnormal, BIRADS 1 , BIRADS 2 Comment:follow uo 1 year Anatomical Region Laterality Modality Other us Historical Provider HEALTH MAINTENANCE Final Result documented in this encounter Visit Diagnoses Not on filedocumented in this encounter Care Teams Ux Developer Relationship Specialty Start Date End Date Adriane Marte MD [address] [place] [address] PCP - General Family Medicine 01/08/14 Alvaro Alaniz MD [address]rd [place] [address] Gastroenterology 06/28/24 documented as of this encounter
--- OUTSIDE RECORDS SUMMARY | 2024-07-28 08:56 | XMS_ITS | Encounter Summary ---
Author Organization [employer] Address [address] [facility] 7t [place] [address] Care Team Providers Care Marine Pipefitter Helper Name Role Phone Adriane Marte MD Primary Care Provider [phone] Alvaro Alaniz MD Unavailable [phone] Reason for Visit * Reason Onset Date Comments Med Refill 07/15/2024 wrist/sign paper 07/15/2024 I spoke with sae e pt that she need to come to the office to sign some paper before the insurances charged her for the wrist brace. The pt stated that she is going to pass during weeks. Encounter Details Date Type Department Care Team (Late st Contact Info) Description 07/15/2024 Refill [facility] [address] [place], [place] [phone] Adriane Marte MD [address] [place], [place] [phone] Primary hypertension Social History Tobacco Use Types Packs/Day Years [...] AM EDT documented as of this encounter Miscellaneous Notes * Telephone Encounter - Brianna Be [place] - 07/21/2024 11:07 AM EST I spoke with the pt that she need to come to the office to sign some paper before the insurances charged her for the wrist brace. The pt stated that she is going to pass during weeks. documented in this encounter Plan of Treatment Upcoming Encounters Date Type Department Care Team (Late st Contact Info) Description 10/19/2024 11:00 AM EDT Office Visit [facility] [address] [place] [address] Adriane Marte MD [address] [place] [address] documented as of this encounter Visit Diagnoses Diagnosis Primary hypertension Unspecified essential hypertension documented in this encounter Additional Health Concerns Assessment Noted Time PHQ-9 Depression Total Score: 0 07/15/19 25 2:27 PM EST documented as of this encounter Care Teams Marine Pipefitter Helper Relationship Specialty Start Date End Date Adriane Marte MD [address] [place] [phone] PCP - General Family Medicine 01/08/14 Alvaro Alaniz MD [address] [place] [address] 3rd [place] [address] Gastroenterology 06/28/24 documented as of this encounter
--- OUTSIDE RECORDS SUMMARY | 2024-07-28 08:56 | XMS_ITS | Clinical Summary ---
Author Organization [employer] Address [address] [place] [address] [address] [place] [address] Care Team Providers Care Audio Visual Aids Director Name Role Phone Adriane Marte MD Primary Care Provider [phone] Alvaro Alaniz MD Unavailable [phone] Allergies Active Allergy Reactions Criticality Noted Date Comments Lidocaine 12/09/2017 Medications fluticasone (Flonase) 50 MCG/ACT nasal sprayIndication s:Seasonal allergies Administer 1-2 sprays into each nostril Once per day. Shake gently. Before first use, prime pump. After use, clean tip and replace cap. 16 g 2 07/15/19 25 026 Active acyclovir (Zovirax) 800 MG tabletIndicatio ns:Herpes Simplex Infection Take 3 tabs a day for 2 days 6 tablet 3 07/15/19 25 Active hydroCHLOROthia zide (HYDRODiuril) 25 MG tabletIndicatio ns:Primary hypertension TAKE 1 TABLET BY MOUTH EVERY DAY 90 tablet 3 07/15/19 25 Active cholecalciferol (D3-1000) 25 MCG (1000 UT) capsuleIndicati ons:Vitamin D deficiency Take 1 capsule (25 mcg) by mouth Once per day. 90 capsule 07/15/19 25 Active hydroCHLOROthia zide (HYDRODiuril) 25 MG tabletIndicatio ns:Primary hypertension TAKE 1 TABLET BY MOUTH EVERY DAY 90 tablet 3 07/11/19 24 025 Discontinued(R eorder (will not trigger notification to Pharmacy)) D3-1000 25 MCG (1000 UT) capsuleIndicati ons:Vitamin D deficiency TAKE 1 CAPSULE BY MOUTH EVERY DAY 90 capsule 06/22/20 025 Discontinued(R eorder (will not trigger notification to Pharmacy)) Active Problems Problem Noted Date Diagnosed Date Exercise counseling 07/15/2024 Assessment & Plan (07/15/2024 2:24 PM EST): Exercise Recommendations: At least 150 minutes of moderate-intensity physical activity per week, or an equivalent combination of moderate- and vigorous-intensity activity Dietary counseling 07/15/2024 Assessment & Plan (07/15/2024 2:24 PM EST): Dietary Recommendations: Fruits, vegetables, whole grains, protein foods, and fat-free or low-fat dairy products are healthy choices. Eat different types of protein foods in your diet. This can include seafood, lean meats, poultry, beans, peas, lentils, nuts, seeds, soy products, and eggs. Limit foods and beverages higher in added sugars, saturated fat, and sodium. Overweight 07/15/2024 Overview (07/15/2024): -ordered routine labs 07/15/24 Assessment & Plan (07/15/2024 2:50 PM EST): -ordered routine labs 07/15/24 Seasonal allergies 07/15/2024 Overview (07/15/2024): Controlled on fluticasone (Flonase) 50 MCG/ACT nasal spray Assessment & Plan (07/15/2024 2:38 PM EST): Controlled on fluticasone (Flonase) 50 MCG/ACT nasal spray Other fatigue 07/15/2024 Overview (07/15/2024): -ordered routine labs 07/15/24 Assessment & Plan (07/15/2024 3:07 PM EST): -ordered routine labs 07/15/24 Canker sores oral 07/15/2024 Overview (07/15/2024): Discussed getting OTC oral gel ad applying it as soon as lesion is about to appear. Assessment & Plan (07/15/2024 3:08 PM EST): Discussed getting OTC oral gel ad applying it as soon as lesion is about to appear. Post-menopausal 07/15/2024 Overview (07/15/2024): Final Menstrual Period: at 47 y.o. Symptoms: [...] magnesium, omega-3 -DEXA done: not age applicable. Assessment & Plan (07/15/2024 3:34 PM EST): Final Menstrual Period: at 47 y.o. Symptoms: [...] applicable. Localized pain of left shoulder joint 07/15/2024 Overview (07/15/2024): Pain and decreased ROM x1.5 weeks. -ordered XR 07/15/24 -referred to Orthopedics 07/15/24 Assessment & Plan (07/15/2024 3:16 PM EST): Pain and decreased ROM x1.5 weeks. -ordered XR 07/15/24 -referred to Orthopedics 07/15/24 Numbness and tingling in both hands 07/15/2024 Overview (07/15/2024): Symptom onset gradual over the past 1.5 weeks. Discussed likely carpel tunnel syndrome. -will try brace and follow-up in 2 weeks 07/15/24. Assessment & Plan (07/15/2024 3:05 PM EST): Symptom onset gradual over the past 1.5 weeks. Discussed likely carpel tunnel syndrome. -will try brace and follow-up in 2 weeks 07/15/24. Vitamin D deficiency 07/15/2024 Overview (07/15/2024): Lab Results Component Value Date [id number] 37.4 07/12/2023 -ordered repeat lab 07/15/24 -prescribed cholecalciferol (D3-1000) 25 MCG (1000 UT) capsule 07/15/24 Assessment & Plan (07/15/2024 3:06 PM EST): Lab Results Component Value Date [id number] 37.4 07/12/2023 -ordered repeat lab 07/15/24 -prescribed cholecalciferol (D3-1000) 25 MCG (1000 UT) capsule 07/15/24 Primary hypertension 06/28/2024 Overview (07/15/2024): -Blood pressure slightly above goal -Continue lifestyle modifications -Continue current medications -will restart hydroCHLOROthiazide (HYDRODiuril) 25 MG 07/15/24 -follow-up in 3 months -labs ordered 07/15/24 Assessment & Plan (07/15/2024 3:32 PM EST): -Blood pressure slightly above goal -Continue lifestyle modifications -Continue current medications -will restart hydroCHLOROthiazide (HYDRODiuril) 25 MG 07/15/24 -follow-up in 3 months -labs ordered 07/15/24 Cardiac risk counseling 05/14/2024 Overview (07/15/2024): Calculated 07/15/24: low risk The 10-year ASCVD [...] interventions discussed. -ordered FLP and HFP 07/15/24 Assessment & Plan (07/15/2024 2:50 PM EST): Calculated 07/15/24: low risk The 10-year ASCVD [...] interventions discussed. -ordered FLP and HFP 07/15/24 Physical exam 07/04/2023 Overview (07/04/2023): -Normal growth and development. -Anticipatory guidance discussed. -Preventative care / harm reduction discussed. Assessment & Plan (07/04/2023 9:06 AM EST): -Normal growth and development. -Anticipatory guidance discussed. -Preventative care / harm reduction discussed. Plantar fasciitis 07/04/2023 Other specified health status 04/12/2023 Overview (07/15/2024): -next comprehensive annual evaluation due after 07/15/25 -eye care facilitated by [facility] -healthcare proxy paper given 07/04/23, filed 07/15/24 Assessment & Plan (07/15/2024 2:30 PM EST): -next comprehensive annual evaluation due after 07/15/25 -eye care facilitated by [facility] -healthcare proxy paper given 07/04/23, filed 07/15/24 Assessment & Plan (07/04/2023 11:08 AM EST): -next physical exam due after 07/04/24 -eye care facilitated by [facility] -healthcare proxy paper given 07/04/23 Colon cancer screening 04/12/2023 Overview (07/04/2023): colonoscopy done 05/23/23 with harman Cummins repeat in 10 years Assessment & Plan (07/15/2024 2:25 PM EST): colonoscopy done 05/23/23 with harman Cummins repeat in 10 years Assessment & Plan (07/04/2023 9:05 AM EST): colonoscopy done 05/23/23 with harman Cummins repeat in 10 years Hx of abnormal mammogram 04/12/2023 Overview (07/15/2024): Mammogram on 02/09/2019: BI-RADS 3. Showed 1 simple cyst on L breast. Mammogram on 02/09/2019 BI-RADS 3. Showed 3 simple cysts on L breast. Repeat mammo on 08/12/20 BI-RADS 2 benign. Showed no significant changes from prior studies, stable mildly complicated cyst 3 x 5 mm on L breast, BIRADS 2 10/15/22 BIRADS 1 11/25/23 Assessment & Plan (07/15/2024 2:25 PM EST): Mammogram on 02/09/2019: BI-RADS 3. Showed 1 simple cyst on L breast. Mammogram on 02/09/2019 BI-RADS 3. Showed 3 simple cysts on L breast. Repeat mammo on 08/12/20 BI-RADS 2 benign. Showed no significant changes from prior studies, stable mildly complicated cyst 3 x 5 mm on L breast, BIRADS 2 10/15/22 BIRADS 1 11/25/23 Assessment & Plan (07/04/2023 3:17 PM EST): Mammogram on 02/09/2019: BI-RADS 3. Showed 1 simple cyst on L breast. Mammogram on 02/09/2019 BI-RADS 3. Showed 3 simple cysts on L breast. Repeat mammo on 08/12/20 BI-RADS 2 benign. Showed no significant changes from prior studies, stable mildly complicated cyst 3 x 5 mm on L breast, BIRADS 2 10/15/22 Chronic low back pain 11/14/2017 04/12/2023 Mild intermittent asthma 03/25/2017 023 Overview (07/04/2023): Well controlled Assessment & Plan (07/15/2024 2:25 PM EST): Well controlled Assessment & Plan (07/04/2023 3:19 PM EST): Well controlled Allergic rhinitis 12/19/2012 04/12/2023 Cervical intraepithelial neoplasia grade 1 12/1904/12/2023 Overview (07/04/2023): Last Pap 06/2016 NILM, HPV negative. Repeat done 05/21/22 NILM, HPV negative, resume regular testing Assessment & Plan (07/04/2023 3:18 PM EST): Last Pap 06/2016 NILM, HPV negative. Repeat done 05/21/22 NILM, HPV negative, resume regular testing Resolved Problems Problem Noted Date Diagnosed Date Resolved Date Anemia 12/13/2011 04/12/2023 07/15/2024 Overview (07/15/2024): Lab Results Component Value Date HGB 13.2 07/12/2023 HGB 13.1 05/21/2022 HGB 13.0 09/23/2020 HEMATOCRIT 38.4 05/21/2022 HEMATOCRIT 38.0 09/23/2020 Encounters Date Type Department Care Team Description 07/15/2024 2:15 PM EST Office Visit [facility] [address] [place] [phone] Adriane Marte MD Primary hypertension (Primary Dx); Mild intermittent asthma, [...] Encounter for immunization; Other specified health status 07/15/2024 Refill [facility] [address] [place] [address] Adriane Marte MD Primary hypertension 07/15/2024 Travel 07/14/2024 Travel 07/14/[address] [address] Brianna Be MA charprep 07/03/2024 Patient Outreach [address] [address] Adriane Marte MD Pre-visit Planning (Pre-visit planning - LVM ) 06/22/[address] [address] Adriane Marte MD Vitamin D deficiency 05/04/[address] [address] Cindy Robins MA June Recall from Last 3 Months Immunizations Name Administration Dates Next Due Hep A, Adult 02/24/2015 Hep B, Adolescent or Pediatric 11/11/2000,1998,11/28/1998 Hep B, adult 07/15/2024,07/04/2023 Influenza Injectable Quadriv alant Preservative Free IIV4 MDCK 03/19/2023,04/01/2020,04/01/2018 Influenza injectable quadriv alent preservative free 03/23/2022,05/18/2019 Influenza live intranasal qu adrivalent LIAV4 05/12/2015 Influenza, IIV3, injectable 04/13/2014 Influenza, Split (incl. sera fied surface antigen) 03/05/2013 Influenza, seasonal, injecta ble, preservative free 07/15/2024 Pfizer Covid-19 Vaccine 12+ 06/27/2021, 1,11/30/2020 Pneumococcal Conjugate PCV 20 07/15/2024 TD (adult), 2 Lf tetanus tox oid, preservative free, adsorbed 02/25/1997 Tdap 07/04/2023,03/05/2013 Zoster, Recombinant 07/23/2022,05/21/2022 Family History Medical History Relation Name Comments Alzheimer's disease Father coagulation Father Cancer Mother heart disease Mother Relation Name Status Comments Father Mother Social History Tobacco Use Types Packs/Day Years Used Date Smoking Tobacco: Never Smokeless Tobacco: Never Tobacco Cessation:Counseling Given: Not Answered Depression Answer Date Recorded Patient Health Questionnaire-9 [...] Orientation Straight 04/23/2022 10 :14 AM EDT Last Filed Vital Signs Vital Sign Reading [...] Mass Index 31.64 07/15/2024 2:24 PM EST Plan of Treatment Upcoming Encounters Date Type Department Care Team (Late st Contact Info) Description 10/19/2024 11:00 AM EDT Office Visit [facility] [address] [place] [address] Adriane Marte MD [address] [place] [address] Health Maintenance Due Date Last Done Comments CT Colonography 1971 FIT DNA/Cologuard 1971 FIT 1971 FOBT 1971 Sigmoidoscopy 1971 Family Planning (PISQ) 10/05/1986 Hepatitis B Vaccines (3 of 3 - 19+ 3-dose series) 09/09/2024 07/15/2024, 07/04/2023, 11/11/2000, Additional history exists Pap Smear 05/21/2025 05/21/2022 Tobacco Screening 06/28/2025 06/28/2024 Alcohol/Substance Use Screening 07/15/2025 07/15/2024 COVID-19 Vaccine ( season) 2025 06/27/2021, 12/21/2020, 11/30/2020 Postponed from 02/23/2024 (Patient Refused) Depression Screening 07/15/2025 07/15/2024, 07/15/19 SDOH Screening 07/15/2025 07/15/2024 Mammogram 11/27/2025 11/28/2023, 06/0 08/2023, 10/15/2022, Additional history exists Cervical Cancer Screening 05/21/2027 HPV/Cotest 05/21/2027 05/21/2022 Lipid Panel 07/12/2028 07/12/2023, 04/25, 09/23/2020 Colonoscopy 05/23/2033 05/23/2023 Colorectal Cancer Screening 05/23/2033 DTaP/Tdap/Td Vaccines (3 - Td or Tdap) 07/04/2033 07/04/2023, 03/05/2013, 02/25/1997 RSV Patients and Patients Aged 60 years or older (1 - 1-dose 75+ series) 10/05/2046 HIV Screening Completed 12/19/2012 Hepatitis C Screening Completed 12/19/2012 Hepatitis A Vaccines Aged Out 02/24/2015 No long er eligible based on patient's age to complete this topic Zoster Vaccines Completed 07/23/2022, 05/21/2022 Influenza Vaccine Completed 07/15/2024, , 03/23/2022, Additional history exists Pneumococcal Vaccine: 50+ Years Completed 07/15/2024 HIB Vaccines Aged Out No longer eligi ble based on patient's age to complete this topic HPV Vaccines Aged Out No longer eligi ble based on patient's age to complete this topic IPV Vaccines Aged Out No longer eligi ble based on patient's age to complete this topic Meningococcal Vaccine Aged Out No nicholas khadijah eligible based on patient's age to complete this topic RSV under 20 months Aged Out No longe r eligible based on patient's age to complete this topic Rotavirus Vaccines Aged Out No longer eligible based on patient's age to complete this topic Procedures Procedure Name Priority Date/Time Associated Diagnosis Comments MAMMOGRAPHY Routine 11/28/2023 3:41 PM EDT LIPID PANEL, STANDARD Routine 07/12/2023 10:40 AM EST Preventative health care COLONOSCOPY Routine 05/23/2023 THINPREP IMAGING PAP AND HPV MRNA E6/E7, WITH CT/NG, TRICHOMONAS Routine 05/21/2022 12:12 PM EST HEPATITIS C ANTIBODY Routine 12/19/2012 HM HIV 1/2 ANTIGEN AND ANTIBODY Routine 12/19/2012 from Last 3 Months or Most Recently Relevant to Health Maintenance Results * Mammography (11/28/2023 3:41 PM EDT) Mammogram BIRADS 1 Normal, Abnormal, BIRADS 1 , BIRADS 2 Comment:follow uo 1 year Anatomical Region Laterality Modality Other us Historical Provider MD HEALTH MAINTENANCE Final Result * Lipid Panel, Standard (07/12/2023 10:40 AM EST) Triglycerides 77 <150 mg/dL [facility] Comment:Desirable Triglyceri de: less than 150 mg/dLBorderline High Triglyceride 150-199 mg/dLHigh Triglyceride: 200-499 mg/dLVery High Triglyceride: greater than or equal to 5OO mg/dL Cholesterol 151 <200 mg/dL [facility] Comment:Desirable Cholestero l: less than 200 mg/dLBorderline High Cholesterol: 200-239 mg/dLHigh Cholesterol: greater than 239 mg/dL LDL Cholesterol Calculated 87 <100 mg/dL [facility] Comment:Desirable LDL: less than 100 mg/dLNear Optimal/Above Optimal LDL: 110- 129 mg/dLBorderline High LDL: 130-159 mg/dLHigh LDL: 160-189 mg/dLVery High LDL: greater than or equal to 190 mg/dL HDL Cholesterol 49 >40 mg/dL [facility] Comment:Desirable HDL: great er than 40 mg/dL Note: This HDL assay may give artificially low results in patients with liver disease. Blood Venous blood specimen / Unknown 07/12/2023 10:40 AM EST 07/12/2023 1:26 PM EST Adriane Marte MD LAB BLOOD ORDERABLES Final Result [facility] [address] [place] [address] [phone] * Hm Colonoscopy (05/23/2023) Colonoscopy Normal Normal Comment:with Dr. Alaniz Historical Provider HEALTH MAINTENANCE Final Result * THINPREP TIS PAP AND HPV mRNA E6/E7, CT/NG, TRICH (05/21/2022 12:12 PM EST) Chlamydia trachomatis RNA, TMA, Urogenital NOT DETECTED NOT DETECTED CONVERTED Locality Clinical Information: None given CONVERTED Locality COMMENT SEE COMMENT CONVERTE D Locality Comment: The analytical performance characteristics of this assay, when used to test SurePath(TM) specimens have been determined by [employer]. The modifications have not been cleared or approved by the FDA. This assay has been validated pursuant to the CLIA regulations and is used for clinical purposes. ?? For additional information, please refer to https://education.GuidePal/faq/PYM332 (This link is being provided for information/ educational purposes only.) ?? COMMENT SEE COMMENT MAYNOR D Locality Comment: EXPLANATORY NOTE: ? The Pap is a screening test for cervical cancer. It is ?? not a diagnostic test and is subject to false negative ?? and false positive results. It is most reliable when a ?? satisfactory sample, regularly obtained, is submitted ?? with relevant clinical findings and history, and when ?? the Pap result is evaluated along with historic and ?? current clinical information. ?? COMMENT: This Pap test has been evaluated with computer assisted technology. CONVERTED Locality Asbestos Abatement Technician: SEE COMMENT CONVERTED [facility] Comment: BK,CT(ASCP) CT screening location: [address] HPV nRNA E6/E7 Not Detected Not Detected [facility] Comment: Methodology: Operations Vocational Instructor-Mediated Amplification This assay detects E6/E7 viral messenger RNA (mRNA) from 14 high-risk HPV types (16,18,31,33,35,39,45,51,52,56,58,59,66,68). ? Cervical sources are required for HPV testing. If a vaginal source from a patient who has had a total hysterectomy with removal of cervix was ?? submitted, please contact the testing laboratory for alternative testing options. ?? For additional information, please refer to http://Sentisis.GuidePal/faq/GUD965e3 (This link if provided for information/ educational purposes only.) Infection Shift in vaginal jo suggestive of bacterial vaginosis. [facility] Interpretation/Re sult: Negative for intraepithelial lesion or malignancy. [facility] LMP: NONE GIVEN [facility] Neisseria gonorrhoeae RNA, TMA, Urogenital NOT DETECTED NOT DETECTED [facility] Prev. BX: NONE GIVEN CONVERTED [facility] Prev. PAP: NONE GIVEN CONVERTE D [facility] SOURCE: Cervix [facility] Statement Of Adequacy: SEE COMMENT [facility] Comment: Satisfactory for evaluation. Endocervical/transformation zone component present. Age and/or menstrual status not provided Trichomonas vaginalis, QL, TMA, PAP Vial NOT DETECTED NOT DETECTED [facility] Comment: The analytical performance characteristics of this assay have been determined by [employer]. The modifications have not been cleared or approved by the FDA. This assay has been validated pursuant to the CLIA regulations and is used for clinical purposes. ?? For additional information, please refer to http://education.GuidePal/ faq/Trichomonastma (This link is being provided for information/ educational purposes only.) ?? 05/21/2022 12:1 2 PM EST us Adriane Marte MD LAB PATHOLOGY ORDERABLES F inal Result [facility] * HM Hepatitis C Antibody (12/19/2012) Hepatitis C Antibody Nonreactive Blood Historical Provider HEALTH MAINTENANCE Final Result * HM HIV 1/2 Antigen and Antibody (12/19/2012) HIV Ag/Ab Nonreactive Historical Provider HEALTH MAINTENANCE Final Result from Last 3 Months or Most Recently Relevant to Health Maintenance Insurance [facility] Advance Directives Documents on File Type Date Recorded Patient Hot Molder Expl anation Advance Directives and Living Will 07/16/2024 11:13 AM Health Care Proxy Care Teams Audio Visual Aids Director Relationship Specialty Start Date End Date Adriane Marte MD [address] [place] [address] PCP - General Family Medicine 01/08/14 Alvaro Alaniz MD [address] [place] [address] [address] [place] [address] Gastroenterology 06/28/24
--- OUTSIDE RECORDS SUMMARY | 2024-07-28 08:56 | XMS_ITS | Encounter Summary ---
Author Organization [employer] Address [address] [facility] [address]t [place] [address] Care Team Providers Care Agent Telegrapher Name Role Phone Adriane Marte MD Primary Care Provider [phone] Alvaro Alaniz MD Unavailable [phone] Reason for Visit * Reason Onset Date Comments charprep 07/14/2024 Encounter Details Date Type Department Care Team (Late st Contact Info) Description 07/14/2024 Telephone [facility] [address] [place] [address] [facility] Be [facility] Social History Tobacco Use Types Packs/Day Years Used Date Smoking Tobacco: Never Smokeless Tobacco: Never Depression Answer Date Recorded Patient Health Questionnaire-9 Score 0 07/15/2024 Patient Health Questionnaire-9 Score 0 07/15/2024 Last PHQ-9: Questionnaire Data Not on file 0 07/15/2024 Housing Stability Answer Date Recorded What is your housing situation today? I have miruth osorio 07/15/[address] you [...] Telephone Encounter - Brianna Be MA - 07/14/2024 8:49 AM EST .Chart Prep Labs: done Images: done Vaccines due: Covid Due, Hep B Due, and Flu Due Referrals: Mammo is done Screenings: Mammogram Overdue care gaps: Sbirt, SDOH, and PHQ-9 documented in this encounter Plan of Treatment Upcoming Encounters Date Type Department Care Team (Late st Contact Info) Description 10/19/2024 11:00 AM EDT Office Visit [facility] [address] [place] [address] Adriane Marte MD [address] [place] [address] documented as of this encounter Visit Diagnoses Not on filedocumented in this encounter Care Teams Agent Telegrapher Relationship Specialty Start Date End Date Adriane Marte MD [address] [place] [address] PCP - General Family Medicine 01/08/14 Alvaro Alaniz MD [address] [place] [address] Drive 3rd [place] [address] Gastroenterology 06/28/24 documented as of this encounter
--- OUTSIDE RECORDS SUMMARY | 2024-07-28 08:56 | XMS_ITS | Encounter Summary ---
Author Organization [employer] Address [address] [place] [address] [address]t [place] [address] Care Team Providers Care Manufacturing Engineering Intern Name Role Phone Adriane Marte MD Primary Care Provider [phone] Alvaro Alaniz MD Unavailable [phone] Encounter Details Date Type Department Care Team (Late st Contact Info) Description 10/25/2022 Orders Only [facility] [address] [place] [address] Mimi Huerta LPN Social History Tobacco Use Types Packs/Day Years [...] Description 10/19/2024 11:00 AM EDT Office Visit [facility] MEDICINE [address] [place] [address] Adriane Marte MD [address] [place] [address] documented as of this encounter Visit Diagnoses Not on filedocumented in this encounter Care Teams Manufacturing Engineering Intern Relationship Specialty Start Date End Date Adriane Marte MD [address] [place] [address] PCP - General Family Medicine 01/08/14 Alvaro Alaniz MD [address] [place] [address] Drive [address]rd [place] [address] Gastroenterology 06/28/24 documented as of this encounter
--- OUTSIDE RECORDS SUMMARY | 2024-07-28 08:56 | XMS_ITS | Encounter Summary ---
Author Organization [employer] Address [address] [facility] [address]t [place] [address] Care Team Providers Care Transcriber Name Role Phone Adriane Marte MD Primary Care Provider [phone] Alvaro Alaniz MD Unavailable [phone] Encounter Details Date Type Department Care Team (Latest Contact Info) Description 07/15/2024 Travel Social History Tobacco Use Types Packs/Day Years [...] Description 10/19/2024 11:00 AM EDT Office Visit [facility] [address] [place] [phone] Adriane Marte MD [address] [place] [address] documented as of this encounter Visit Diagnoses Not on filedocumented in this encounter Additional Health Concerns Assessment Noted Time PHQ-9 Depression Total Score: 0 07/15/19 2:27 PM EST documented as of this encounter Care Teams Transcriber Relationship Specialty Start Date End Date Adriane Marte MD [address] [place] [address] PCP - General Family Medicine 01/08/14 Alvaro Alaniz MD [address] [place] [address] 3rd [place] [address] Gastroenterology 06/28/24 documented as of this encounter
--- OUTSIDE RECORDS SUMMARY | 2024-07-28 08:56 | XMS_ITS | Encounter Summary ---
Author Organization [employer] Address [address] [place] [address] [address] [place] [address] Care Team Providers Care Interactive Media Designer Name Role Phone Adriane Marte MD Primary Care Provider [phone]- [phone] Alvaro Alaniz MD Unavailable [phone] Reason for Visit * Reason Onset Date Comments Med Refill 06/11/2023 Encounter Details Date Type Department Care Team (Late st Contact Info) Description 06/11/2023 Telephone [facility] [address] [place], [place] [phone] Adriane Marte MD [address] [place], [place] [phone] Med Refill Social History Tobacco Use Types Packs/Day Years Used Date Smoking Tobacco: Never Smokeless Tobacco: Never Comments Unknown Sex and Gender Information Value Date Recorded Sex Assigned at Female 04/23/2022 10:14 AM EDT Legal Sex Female 10:14 AM EDT Gender Identity Female 04/23/2022 10:14 AM EDT Sexual Orientation Straight 04/23/2022 10 :14 AM EDT documented as of this encounter Miscellaneous Notes * Telephone Encounter - Mimi Huerta LPN - 06/11/2023 10:37 AM EST Medication was sent to [facility][id number] on 04/24/23 #90 with 1 refill. * Telephone Encounter - Jasson Kelley - 06/11/2023 10:22 AM EST Tc from pt requesting medication refill for D3-1000 25 MCG (1000 UT) capsule documented in this encounter Plan of Treatment Upcoming Encounters Date Type Department Care Team (Late st Contact Info) Description 10/19/2024 11:00 AM EDT Office Visit [facility] [address] [place] [phone] Adriane Marte MD [address] [place] [phone] documented as of this encounter Visit Diagnoses Not on filedocumented in this encounter Care Teams Interactive Media Designer Relationship Specialty Start Date End Date Adriane Marte MD [address] [place] [phone] PCP - General Family Medicine 01/08/14 Alvaro Alaniz MD [address] [place] [address] 3rd [place] [address] Gastroenterology 06/28/24 documented as of this encounter
--- OUTSIDE RECORDS SUMMARY | 2024-07-28 08:56 | XMS_ITS | Encounter Summary ---
Author Organization [employer] Address [address] [facility] 7t [place] [address] Care Team Providers Care Branch Specialist Name Role Phone Adriane Marte MD Primary Care Provider [phone] Alvaro Alaniz MD Unavailable [phone] Encounter Details Date Type Department Care Team (Latest Contact Info) Description 07/14/2024 Travel Social History Tobacco Use Types Packs/Day [...] 10/19/2024 11:00 AM EDT Office Visit [facility] [address] [place] [phone] Adriane Marte MD [address] [place] [phone] documented as of this encounter Visit Diagnoses Not on filedocumented in this encounter Care Teams Branch Specialist Relationship Specialty Start Date End Date Adriane Marte MD [address] [place] [phone] PCP - General Family Medicine 01/08/14 Alvaro Alaniz MD [address] [place] [address] 3rd [place] [address] Gastroenterology 06/28/24 documented as of this encounter
--- OUTSIDE RECORDS SUMMARY | 2024-07-28 08:56 | XMS_ITS | Clinical Summary ---
Author Organization [facility] ity Address [address] [place] [address] Care Team Providers Care Maritime Engineer Name Role Phone Unavailable Primary Care Provider Unavailabl e Family History Medical History Relation Name Comments Cataracts Brother Glaucoma Sister Blindness Neg Hx Macular degeneration Neg Hx Strabismus Neg Hx Relation Name Status Comments Brother Sister Social History Tobacco Use Types Packs/Day Years Used Date Smoking Tobacco: Never Sex and Gender Information Value Date Recorded Sex Assigned at Not on file Gender Identity Not on file Sexual Orientation Not on file Obstetrics History Plan of Treatment Health Maintenance Due Date Last Done Comments Breast Cancer Screening 1970 DTaP,Tdap,and Td Vaccines (1 - Tdap) 10/05/1990 Hepatitis B Vaccines (1 of 3 - 19+ 3-dose series) 10/05/1990 Cervical Cancer Screening: P ap Smear 10/05/1992 Zoster Vaccines (1 of 2) 10/05/2021 COVID-19 Vaccine (2023-2 5 season) 2024 Influenza Vaccine (#1) 2024 HIB Vaccines Aged Out No longer eligi ble based on patient's age to complete this topic HPV Vaccines Aged Out No longer eligi ble based on patient's age to complete this topic Hepatitis A Vaccines Aged Out No long er eligible based on patient's age to complete this topic IPV Vaccines Aged Out No longer eligi ble based on patient's age to complete this topic MMR Vaccines Aged Out No longer eligi ble based on patient's age to complete this topic Meningococcal ACWY Vaccine Aged Out N o longer eligible based on patient's age to complete this topic Pneumococcal Vaccine: Pediat rics (0 to 5 Years) and At-Risk Patients (6 to 64 Years) Aged Out No longer eligible b ased on patient's age to complete this topic RSV Immunization Patients Un david 20 months Aged Out No longer eligible b ased on patient's age to complete this topic Varicella Vaccines Aged Out No longer eligible based on patient's age to complete this topic
--- OUTSIDE RECORDS SUMMARY | 2024-07-28 08:56 | XMS_ITS | Encounter Summary ---
Author Organization [employer] [facility] Address [address] [place] [address] [address]t [place] [address] Care Team Providers Care Radiation Physicist Name Role Phone Adriane Marte MD Primary Care Provider [phone] Alvaro Alaniz MD Unavailable [phone] Encounter Details Date Type Department Care Team (Late Contact Info) Description 05/23/2023 Abstract [facility] [address] [place] [address] [phone] Adriane Marte MD [address] [place] [address] [phone] Social History Tobacco Use Types Packs/Day Years [...] Encounters Date Type Department Care Team (Late Contact Info) Description 10/19/2024 11:00 AM EDT Office Visit [facility] [address] [place] [address] [phone] Adriane Marte MD [address] [place] [address] [phone] documented as of this encounter Procedures Procedure Name Priority Date/Time Associated Diagnosis Comments COLONOSCOPY Routine 05/23/2023 documented in this encounter Results * Colonoscopy (05/23/2023) Colonoscopy Normal Normal Comment:with Dr. Alaniz us Historical Provider HEALTH MAINTENANCE Final Result documented in this encounter Visit Diagnoses Not on filedocumented in this encounter Care Teams Radiation Physicist Relationship Specialty Start Date End Date [place], [place] Adriane [address] [place] [phone] PCP - General Family Medicine 01/08/14 Alvaro Alaniz MD [address] [place] [address] 3rd [place] [address] Gastroenterology 06/28/24 documented as of this encounter
[2024-07-28 11:32] LABS: MANUAL DIFF FLAG NO
[2024-07-28 11:39] LABS: Basophils Absolute Auto 0.1 X10*3/uL (0.0-0.2); Basophils Percent Auto 0.8 % (0-2); Eosinophils Absolute Auto 0.5 X10*3/uL (0.0-0.4); Eosinophils Percent Auto 5.6 % (0-4); Hematocrit 39.1 % (37.0-47.0); Hemoglobin 12.8 g/dl (12.0-16.0); Imm Gran Abs Auto 0.02 X10*3/uL (0.00-0.03); Imm Gran Pct Auto 0.2 % (0.0-0.4); Lymphocytes Absolute Auto 2.3 X10*3/uL (1.2-4.9); Lymphocytes Percent Auto 27.3 % (20-40); Mean Corpuscular HGB Conc 32.7 g/dl (31.0-35.0); Mean Corpuscular Hemoglobin 28.8 pg (27.0-33.0); Mean Corpuscular Volume 87.9 fL (80.0-98.0); Mean Platelet Volume 11.4 fL (9.4-12.3); Monocytes Absolute Auto 0.6 X10*3/uL (0.1-1.2); Monocytes Percent Auto 6.7 % (2-11); Neutrophils Absolute Auto 4.9 x10*3/uL (2.0-8.3); Neutrophils Percent Auto 59.4 % (45-73); Platelet Count 307 X10*3/uL (160-400); Red Blood Count 4.45 X10*6/uL (4.20-5.50); Red Cell Distribution Width 12.4 % (11.0-16.0); White Blood Count 8.3 X10*3/uL (4.8-10.8)
[2024-07-28 12:14] LABS: Alanine Aminotransferase 13 U/L (0-31); Albumin Level 4.1 g/dL (3.5-5.0); Alkaline Phosphatase 68 U/L (39-117); Anion Gap 15 (12-20); Aspartate Amino Transferase 25 U/L (5-31); Bilirubin Direct 0.2 mg/dL (0.0-0.5); Bilirubin Total 0.5 mg/dL (0.0-1.0); Blood Urea Nitrogen 13 mg/dL (9-16); Carbon Dioxide 26 mmol/L (22-29); Chloride 105 mmol/L (96-108); Cholesterol 140 mg/dL (<200); Estimated Glomerular Filt Rate > 60; Glucose Random 103 mg/dL (60-115); HDL Cholesterol 46 mg/dL (>40); LDL Cholesterol Calculated 78 mg/dL (<100); Potassium 3.9 mmol/L (3.3-5.1); Sodium 142 mmol/L (135-145); Total Protein 7.5 g/dL (6.5-8.0); Triglycerides 80 mg/dL (<150)
[2024-07-28 12:18] LABS: TSH reflex Free T4 0.73 uIU/mL (0.32-4.0); Vitamin D 25-OH Total 42.1 ng/mL (>30)
[2024-07-28 12:26] LABS: Folate 11.3 ng/mL (> or = 4.0); Vitamin B12 447 pg/mL (200-900)
[2024-07-28 12:28] LABS: Creatinine Urine 208.71 mg/dL
== END 2024-07-28 08:41 | disposition home or self-care (01) ==
LOC: HO.HHCL 08:40
PROVIDERS: Visit Provider Family Medicine
DX: I10 Essential (primary) hypertension (principal); E66.811 Obesity, class 1; Z68.31 Body mass index [BMI] 31.0-31.9, adult; R53.83 Other fatigue
CPT/HCPCS: 36415; 80048; 80061; 80076; 82043; 82306; 82570; 82607; 82746; 84443; 85025

== ENCOUNTER 2024-08-27 10:55 | Outpatient (REF) | payer OTHER, SELFPAY ==
--- OUTSIDE RECORDS SUMMARY | 2024-08-28 12:35 | XMS_ITS | Encounter Summary ---
Author Organization [employer] [facility] Address [address] [place] [address] 7t [place] [address] Care Team Providers Care Men'S Leather Dress Belt Maker Name Role Phone Adriane Marte MD Primary Care Provider [phone]- [phone] Alvaro Alaniz MD Unavailable [phone] Encounter Details Date Type Department Care Team (Late Contact Info) Description 05/23/2023 Abstract [facility] [address] [place] [address] [phone] Adriane Marte MD [address] [place] [address] [phone] Social History Tobacco Use Types Packs/Day Years [...] Description 10/19/2024 11:00 AM EDT Office Visit [facility] [address] [place] [address] [phone] Adriane Marte MD [address] [place] [address] [phone] documented as of this encounter Procedures Procedure Name Priority Date/Time Associated Diagnosis Comments COLONOSCOPY Routine 05/23/2023 documented in this encounter Results * Colonoscopy (05/23/2023) Colonoscopy Normal Normal Comment:with Dr. Alaniz us Historical Provider HEALTH MAINTENANCE Final Result documented in this encounter Visit Diagnoses Not on filedocumented in this encounter Care Teams Men'S Leather Dress Belt Maker Relationship Specialty Start Date End Date [place], [place] Adriane [address] [place] [phone] PCP - General Family Medicine 01/08/14 Alvaro Alaniz MD [address] [place] [address] 3rd [place] [address] Gastroenterology 06/28/24 documented as of this encounter
--- OUTSIDE RECORDS SUMMARY | 2024-08-28 12:35 | XMS_ITS | Encounter Summary ---
Author Organization [employer] [facility] Address [address] [place] [address] [address] [place] [address] Care Team Providers Care Commercial Loan Underwriter Name Role Phone Adriane Marte MD Primary Care Provider [phone] Alvaro Alaniz MD Unavailable [phone] Reason for Visit * Reason Comments Med Refill Encounter Details Date Type Department Care Team (Late st Contact Info) Description 07/18/2022 Refill [facility] [address] [place] [phone] Adriane Marte MD [address] [place] [phone] Social History Tobacco Use Types Packs/Day Years [...] 11:00 AM EDT Office Visit [facility] [address] [place] [address] [phone] Adriane Marte MD [address] [place] [phone] documented as of this encounter Visit Diagnoses Not on filedocumented in this encounter Care Teams Commercial Loan Underwriter Relationship Specialty Start Date End Date Adriane Marte MD [address] [place] [phone] PCP - General Family Medicine 01/08/14 Alvaro Alaniz MD [address] [place] [address] 3rd [place] [address] Gastroenterology 06/28/24 documented as of this encounter
--- OUTSIDE RECORDS SUMMARY | 2024-08-28 12:35 | XMS_ITS | Encounter Summary ---
Author Organization [employer] Address [address] [place] [address] 7t [place] [address] Care Team Providers Care Kiln Operator Helper Name Role Phone Adriane Marte MD Primary Care Provider [phone] Alvaro Alaniz MD Unavailable [phone] Encounter Details Date Type Department Care Team (Late st Contact Info) Description 10/25/2022 Orders Only [facility] [address] [place] [address] Mimi Huerta LPN Social History Tobacco Use [...] Description 10/19/2024 11:00 AM EDT Office Visit [facility] [address] [place] [phone] Adriane Marte MD [address] [place] [phone] documented as of this encounter Visit Diagnoses Not on filedocumented in this encounter Care Teams Kiln Operator Helper Relationship Specialty Start Date End Date Ardiane Marte MD [address] [place] [phone] PCP - General Family Medicine 01/08/14 Alvaro Alaniz MD [address] [place] [address] Drive 3rd [place] [address] Gastroenterology 06/28/24 documented as of this encounter
--- OUTSIDE RECORDS SUMMARY | 2024-08-28 12:35 | XMS_ITS | Clinical Summary ---
Author Organization [employer] Address [address] [place] [address] 7t [place] [address] Care Team Providers Care [facility] Winder Name Role Phone Adriane Marte MD Primary Care Provider [phone] Alvaro Alaniz MD Unavailable [phone] Allergies Active Allergy Reactions Criticality Noted Date Comments Lidocaine 12/09/2017 Medications fluticasone (Flonase) 50 MCG/ACT nasal sprayIndications: Seasonal allergies Administer 1-2 sprays into each nostril Once per day. Shake gently. Before first use, prime pump. After use, clean tip and replace cap. 16 g 2 5 07/15/19 26 Active acyclovir (Zovirax) 800 MG tabletIndications :Herpes Simplex Infection Take 3 tabs a day for 2 days 6 tablet 3 5 Active hydroCHLOROthiazi de (HYDRODiuril) 25 MG tabletIndications :Primary hypertension TAKE 1 TABLET BY MOUTH EVERY DAY 90 tablet 3 5 Active cholecalciferol (D3-1000) 25 MCG (1000 UT) capsuleIndication s:Vitamin D deficiency Take 1 capsule (25 mcg) by mouth Once per day. 90 capsule 5 Active Active Problems Problem Noted Date Diagnosed Date [...] Overview (07/15/2024): Lab Results Component Value Date [id number] 37.4 07/12/2023 -ordered repeat lab 07/15/24 -prescribed cholecalciferol (D3-1000) 25 MCG (1000 UT) capsule 07/15/24 Assessment & Plan (07/15/2024 3:06 PM EST): Lab Results Component Value Date [id number] 37.4 07/12/2023 -ordered repeat lab 07/15/24 -prescribed [...] due after 07/15/25 -eye care facilitated by [facility] -[facility] -healthcare proxy paper given 07/04/23, filed 07/15/24 Assessment & Plan (07/15/2024 2:30 PM EST): -next comprehensive annual evaluation due after 07/15/25 -eye care facilitated by [facility] -[facility] -healthcare proxy paper given 07/04/23, filed 07/15/24 Assessment & Plan (07/04/2023 11:08 AM EST): -next physical exam due after 07/04/24 -eye care facilitated by [facility] -d[facility] home [facility] -healthcare proxy paper given 07/04/23 Colon cancer [...] Description 07/15/2024 2:15 PM EST Office Visit [facility] [address] [place] [phone] Adriane Marte MD Primary hypertension (Primary Dx); [...] immunization; Other specified health status 07/15/2024 Refill [facility] [address] [place] [phone] Adriane Marte MD Primary hypertension 07/15/2024 Travel 07/14/2024 Travel 07/14/2024 Telephone [facility] [address] [place] [address] [phone] Brianna Be MA charprep 07/03/2024 Patient Outreach [facility] [address] [place] [phone] Adriane Marte MD Pre-visit Planning (Pre-visit planning - LVM ) 06/22/2024 Refill [facility] [address] [place] [address] Adriane Marte MD Vitamin D deficiency from Last 3 Months Immunizations Name Administration [...] preservative free 07/15/2024 Pfizer Covid-19 Vaccine 12+ 06/27/2021,,11/30/2020 Pneumococcal Conjugate PCV 20 07/15/2024 TD (adult), [...] Description 10/19/2024 11:00 AM EDT Office Visit [facility] [address] [place] [address] Adriane Marte MD [address] [place] [address] Health Maintenance Due Date Last Done Comments [...] Screening 05/21/2027 HPV/Cotest 05/21/2027 05/21/2022 Lipid Panel 07/28/2029 07/28/2024, 06/24, 05/21/2022, Additional history exists Colonoscopy 05/23/2033 05/23/2023 Colorectal Cancer Screening 05/23/2033 [...] Procedure Name Priority Date/Time Associated Diagnosis Comments VITAMIN B12/FOLATE, SERUM PANEL Routine 07/28/2024 8:42 AM EST Other fatigue TSH W/REFLEX TO FT4 Routine 07/28/2024 8 :42 AM EST Other fatigue CBC WITH AUTO DIFFERENTIAL Routine 07/28/2024 8:42 AM EST Other fatigue VITAMIN D,25-OH,TOTAL,IA Routine 07/28/2024 8:42 AM EST Other fatigue BASIC METABOLIC PANEL Routine 07/28/2024 8:42 AM EST Primary hypertension LIPID PANEL, STANDARD Routine 07/28/2024 8:42 AM EST Class 1 obesity with body mass index (BMI) of 31.0 to 31.9 in adult, unspecified obesity type, unspecified whether serious comorbidity present HEPATIC FUNCTION PANEL Routine 07/28/2024 8:42 AM EST Class 1 obesity with body mass index (BMI) of 31.0 to 31.9 in adult, unspecified obesity type, unspecified whether serious comorbidity present ALBUMIN, RANDOM URINE W/CREATININE Routine 07/28/2024 8:42 AM EST Primary hypertension HM MAMMOGRAPHY Routine 11/28/2023 3:41 PM EDT HM COLONOSCOPY Routine 05/23/2023 THINPREP IMAGING PAP AND HPV MRNA E6/E7, WITH CT/NG, TRICHOMONAS Routine 05/21/2022 12:12 PM EST HM HEPATITIS C ANTIBODY Routine 12/19/2012 HM HIV 1/2 ANTIGEN AND ANTIBODY Routine 12/19/2012 from Last 3 Months or Most Recently Relevant to Health Maintenance Results * Vitamin D, 25-Hydroxy, Total, Immunoassay (07/28/2024 8:42 AM EST) Vitamin D 25-OH Total 42.1 >30 ng/mL [facility] Comment:Health Based Referen ce Values*< 20 ng/mL Vkrgobhfo10-91 ng/mL Insufficient> 30 ng/mL Sufficient*Ellen PORTER. N Engl J Med. 2007;357:266-280Care must be taken in interpreting Vitamin D results fromdifferent laboratories and methodologies. Published datademonstrated that results from patients undergoinghemodialysis may show a negative bias when tested withvarious automated 25-OH vitamin D assays when compared toLC-MS/MS.When testing samples from patients whose predominant form ofVitamin D is Vitamin D2, such as patients receiving VitaminD2 supplementation, results that are subtherapeutic shouldbe confirmed with another method such as LC-MS/MS. Blood Venous blood specimen / Unknown 07/28/2024 8:42 AM EST 07/28/2024 11:27 AM EST Adriane Marte MD LAB BLOOD ORDERABLES Final Result Performing Organization Address [facility]/ZIP Co de Phone Number [facility] [address] [place] [phone] * Vitamin B12/Folate, Serum Panel (07/28/2024 8:42 AM EST) Vitamin B12 447 200 - 900 pg/mL [facility] Comment:NORMAL 200-900 PG/ML INDETERMINATE 160-199 PG/ML DEFICIENT < 160 PG/ML Folate 11.3 > or = 4.0 ng/mL [facility] Comment:Reference Values:> o r = 4.0 ng/mL< 4.0 ng/mL suggests folate deficiency Methotrexate, aminopterin and folinic acid(leucovorin) are chemotherapeutic agents whose molecularstructures are similar to folate; therefore, the Architectfolate assay cannot be used for patients using these drugs. Blood Venous blood specimen / Unknown 07/28/2024 8:42 AM EST 07/28/2024 11:27 AM EST Adriane Marte MD LAB BLOOD ORDERABLES Final Result Performing Organization Address City/[facility] Co de Phone Number [facility] [address] [place] [phone] * TSH W/Reflex to FT4 (07/28/2024 8:42 AM EST) TSH reflex Free T4 0.73 0.32 - 4.0 uIU/mL [facility] Blood Venous blood specimen / Unknown 07/28/2024 8:42 AM EST 07/28/2024 11:27 AM EST Adriane Marte MD LAB BLOOD ORDERABLES Final Result Performing Organization Address [facility] de Phone Number [facility] [address] [place] [phone] * Albumin, Random Urine W/Creatinine (07/28/2024 8:42 AM EST) [facility] Creatinine, Urine 208.71 mg/dL [facility] Microalbumin Urine 21.0 mg/L [facility] Microalbum Creatinine Ratio Ur 10.0 <30 ug/mg cr [facility] Comment:Albumin/Creatinine R atio Reference Ranges: Normal: < 30 ug/mg creatinine Microalbuminuria: 30 - 300 ug/mg creatinineClinical Albuminuria: > 300 ug/mg creatinine Urine 07/28/2024 8:42 AM EST 07/28/2024 11:18 AM EST Adriane Marte MD LAB URINE ORDERABLES Final Result Performing Organization Address [facility] de Phone Number [facility] [address] [place] [phone] * (ABNORMAL) CBC auto differential (07/28/2024 8:42 AM EST) [facility] White Blood Count 8.3 4.8 - 10.8 X10*3/uL [facility] Red Blood Count 4.45 4.20 - 5.50 X10*6/uL [facility] Hemoglobin 12.8 12.0 - 16.0 g/dl [facility] Hematocrit 39.1 37.0 - 47.0 % [facility] Mean Corpuscular Volume 87.9 80.0 - 98.0 fL [facility] Mean Corpuscular Hemoglobin 28.8 27.0 - 33.0 pg [facility] Mean Corpuscular HGB Conc 32.7 31.0 - 35.0 g/dl [facility] Red Cell Distribution Width 12.4 11.0 - 16.0 % [facility] Platelet Count 307 160 - 400 X10*3/uL [facility] Mean Platelet Volume 11.4 9.4 - 12.3 fL [facility] Neutrophils Percent Auto 59.4 45 - 73 % [facility] Imm Gran Pct Auto 0.2 0.0 - 0.4 % [facility] Lymphocytes Percent Auto 27.3 20 - 40 % [facility] Monocytes Percent Auto 6.7 2 - 11 % [facility] Eosinophils Percent Auto 5.6(H) 0 - 4 % [facility] Basophils Percent Auto 0.8 0 - 2 % [facility] NRBC Pct Auto 0.0 0.0 - 0.2 /100WBC [facility] Neutrophils Absolute Auto 4.9 2.0 - 8.3 x10*3/uL [facility] Imm Gran Abs Auto 0.02 0.00 - 0.03 X10*3/uL [facility] Lymphocytes Absolute Auto 2.3 1.2 - 4.9 X10*3/uL [facility] Monocytes Absolute Auto 0.6 0.1 - 1.2 X10*3/uL [facility] Eosinophils Absolute Auto 0.5(H) 0.0 - 0.4 X10*3/uL [facility] Basophils Absolute Auto 0.1 0.0 - 0.2 X10*3/uL [facility] NRBC Abs Auto 0.000 0.0 - 0.012 X10*3/uL [facility] Blood Venous blood specimen / Unknown 07/28/2024 8:42 AM EST 07/28/2024 11:27 AM EST us Adriane Marte MD LAB BLOOD ORDERABLES Final Result [facility] [address] [place] [phone] * Hepatic Function Panel (07/28/2024 8:42 AM EST) Bilirubin, Total 0.5 0.0 - 1.0 mg/dL [facility] Bilirubin, Direct 0.2 0.0 - 0.5 mg/dL [facility] Aspartate Amino Transferase 25 5 - 31 U/L [facility] Alanine Aminotransferase 13 0 - 31 U/L [facility] Total Protein 7.5 6.5 - 8.0 g/dL [facility] Albumin Level 4.1 3.5 - 5.0 g/dL [facility] Alkaline Phosphatase 68 39 - 117 U/L [facility] Blood Venous blood specimen / Unknown 07/28/2024 8:42 AM EST 07/28/2024 11:27 AM EST Adriane Marte MD LAB BLOOD ORDERABLES Final Result [facility] [address] [place] [address] [phone] * Lipid Panel, Standard (07/28/2024 8:42 AM EST) Triglycerides 80 <150 mg/dL [facility] Comment:Desirable Triglyceri de: less than 150 mg/dLBorderline High Triglyceride 150-199 mg/dLHigh Triglyceride: 200-499 mg/dLVery High Triglyceride: greater than or equal to 5OO mg/dL Cholesterol 140 <200 mg/dL [facility] Comment:Desirable Cholestero l: less than 200 mg/dLBorderline High Cholesterol: 200-239 mg/dLHigh Cholesterol: greater than 239 mg/dL LDL Cholesterol Calculated 78 <100 mg/dL [facility] Comment:Desirable LDL: less than 100 mg/dLNear Optimal/Above Optimal LDL: 110- 129 mg/dLBorderline High LDL: 130-159 mg/dLHigh LDL: 160-189 mg/dLVery High LDL: greater than or equal to 190 mg/dL HDL Cholesterol 46 >40 mg/dL [facility] Comment:Desirable HDL: great er than 40 mg/dL Note: This HDL assay may give artificially low results in patients with liver disease. Blood Venous blood specimen / Unknown 07/28/2024 8:42 AM EST 07/28/2024 11:27 AM EST us Adriane Marte MD LAB BLOOD ORDERABLES Final Result Performing Organization Address [facility]/ZIP Co de Phone Number [facility] [address] [place] [phone] * Basic Metabolic Panel (07/28/2024 8:42 AM EST) Pathologist [facility] Sodium 142 135 - 145 mmol/L [facility] Potassium 3.9 3.3 - 5.1 mmol/L [facility] Chloride 105 96 - 108 mmol/L [facility] Carbon Dioxide 26 22 - 29 mmol/L [facility] Anion Gap 15 12 - 20 [facility] Urea Nitrogen (BUN) 13 9 - 16 mg/dL [facility] Creatinine, Serum 0.69 0.5 - 1.4 mg/dL [facility] Estimated Glomerular Filt Rate >60 [facility] Comment:Chronic Kidney Disea se: Estimated GFR < 60 mL/min/1.40z6Owuppu Kidney Disease: Estimated GFR < 15 mL/min/1.73m2 Glucose 103 60 - 115 mg/dL [facility] Calcium 9.0 8.4 - 10.2 mg/dL [facility] Blood Venous blood specimen / Unknown 07/28/2024 8:42 AM EST 07/28/2024 11:27 AM EST Adriane Marte MD LAB BLOOD ORDERABLES Final Result Performing Organization Address [facility] Co de Phone Number [facility] [address] [place] [phone] * Mammography (11/28/2023 3:41 PM EDT) Pathologist [facility] Mammogram BIRADS 1 Normal, Abnormal, BIRADS 1 , BIRADS 2 Comment:follow uo 1 year Anatomical Region Laterality Modality Other Historical Provider HEALTH MAINTENANCE Final Result * Colonoscopy (05/23/2023) Pathologist [facility] Colonoscopy Normal Normal Comment:with Dr. Alaniz us Historical Provider HEALTH MAINTENANCE Final Result * THINPREP TIS PAP AND HPV mRNA E6/E7, CT/NG, TRICH (05/21/2022 12:12 PM EST) Chlamydia trachomatis RNA, TMA, Urogenital NOT DETECTED NOT DETECTED [facility] Clinical Information: None given [facility] COMMENT SEE COMMENT CONVERTE D [facility] Comment: The analytical performance characteristics of this assay, when used to test SurePath(TM) specimens have been determined by [facility]. The modifications have not been cleared or approved by the FDA. This assay has been validated pursuant to the CLIA regulations and is used for clinical purposes. ?? For additional information, please refer to https://[employer]/faq/PQV602 (This link is being provided for information/ educational purposes only.) ?? COMMENT SEE COMMENT MAYNOR Roberson [facility] Comment: EXPLANATORY NOTE: ? The Pap is [...] been evaluated with computer assisted technology. CONVERTED [facility] [employer] Make Up Helper: SEE COMMENT [facility]ED [facility] Comment: BK,CT(ASCP) CT screening location: [address] HPV nRNA E6/E7 Not Detected Not Detected CONVERTED [facility] Comment: Methodology: Frog Farmer-Mediated Amplification This assay detects E6/E7 viral messenger RNA (mRNA) from 14 high-risk HPV types (16,18,31,33,35,39,45,51,52,56,58,59,66,68). ? Cervical sources are required for HPV testing. If a vaginal source from a patient who has had a total hysterectomy with removal of cervix was ?? submitted, please contact the testing laboratory for alternative testing options. ?? For additional information, please refer to http://[employer]/faq/OCA331l7 (This link if provided for information/ educational [...] of this assay have been determined by [facility]. The modifications have not been cleared or approved by the FDA. This assay has been validated pursuant to the CLIA regulations and is used for clinical purposes. ?? For additional information, please refer to http://[employer]/ faq/Trichomonastma (This link is being provided for information/ educational purposes only.) ?? 05/21/2022 12:1 2 PM EST Adriane Marte MD LAB PATHOLOGY ORDERABLES F inal Result [facility] * HM Hepatitis C Antibody (12/19/2012) Hepatitis C Antibody Nonreactive Blood Historical Provider HEALTH MAINTENANCE Final Result * HIV 1/2 Antigen and Antibody (12/19/2012) HIV Ag/Ab Nonreactive us Historical Mohit CONTEH HEALTH MAINTENANCE Final Result from Last 3 Months or Most Recently Relevant to Health Maintenance Insurance [employer] Advance Directives Documents on File Type Date Recorded Patient Medical Driver Expl anation Advance Directives and Living Will 07/16/2024 11:13 AM Health Care Proxy Care Teams [facility] Winder Relationship Specialty Start Date End Date Comerio, MD Adriane [address] [place] [phone] PCP - General Family Medicine 01/08/14 Alvaro Alaniz MD [address] [place] [address] [address] [place] [address] Gastroenterology 06/28/24
--- OUTSIDE RECORDS SUMMARY | 2024-08-28 12:36 | XMS_ITS | Clinical Summary ---
Author Organization [facility] ity Address [address] [place] [address] Care Team Providers Care Education Sales Consultant Name Role Phone Unavailable Primary Care Provider Unavailabl e Family History Medical History Relation Name Comments Cataracts Brother Glaucoma Sister Blindness Neg Hx Macular degeneration Neg Hx Strabismus Neg Hx Relation Name Status Comments Brother Sister Social History Tobacco Use Types Packs/Day Years Used Date Smoking Tobacco: Never Comments Unknown Sex and Gender Information Value Date Recorded Sex Assigned at Not on file Legal Sex Female 8:17 PM EST Gender Identity Not on file Sexual Orientation Not on file Obstetrics History Plan of Treatment Health Maintenance Due Date Last Done Comments Breast Cancer Screening 1971 DTaP,Tdap,and Td Vaccines (1 - Tdap) 10/05/1990 Hepatitis B Vaccines (1 of 3 - 19+ 3-dose series) 10/05/1990 Cervical Cancer Screening: P ap Smear 10/05/1992 Pneumococcal Vaccine: 50+ Ye ars (1 of 1 - PCV) 10/05/2021 Zoster Vaccines (1 of 2) 10/05/2021 COVID-19 Vaccine ( - 2023-2 5 season) 2024 Influenza Vaccine (#1) 2024 [...] patient's age to complete this topic Meningococcal B Vacine Aged Out No lo nger eligible based on patient's age to complete [...]
--- OUTSIDE RECORDS SUMMARY | 2024-08-28 12:36 | XMS_ITS | Encounter Summary ---
Author Organization [employer] Address [address] [place] [address] [address] [place] [address] Care Team Providers Care Rip/Mould Operator Name Role Phone Adriane Marte MD Primary Care Provider [phone] Alvaro Alaniz MD Unavailable [phone] Reason for Visit * Reason Onset Date Comments Med Refill 06/11/2023 Encounter Details Date Type Department Care Team (Late st Contact Info) Description 06/11/2023 Telephone [facility] [address] [place], [place] [phone] Adriane Marte MD [address] [place], [place] [phone] Med Refill Social History Tobacco Use Types [...] 10:37 AM EST Medication was sent to [id number] on 04/24/23 #90 with 1 refill. * Telephone Encounter - Jasson Kelley - 06/11/2023 10:22 AM EST Tc from pt requesting medication refill for D3-1000 25 MCG (1000 UT) capsule documented in this encounter Plan of Treatment Upcoming Encounters Date Type Department Care Team (Late st Contact Info) Description 10/19/2024 11:00 AM EDT Office Visit [facility] [address] [place] [phone] Adriane Marte MD [address] [place] [phone] documented as of this encounter Visit Diagnoses Not on filedocumented in this encounter Care Teams Rip/Mould Operator Relationship Specialty Start Date End Date Adriane Marte MD [address] [place] [phone] PCP - General Family Medicine 01/08/14 Alvaro Alaniz MD [address] [place] [address] 3rd [place] [address] Gastroenterology 06/28/24 documented as of this encounter
--- OUTSIDE RECORDS SUMMARY | 2024-08-28 12:36 | XMS_ITS | Encounter Summary ---
Author Organization [employer] Address [address] [facility] [address]t [place] [address] Care Team Providers Care Credit Report Checker Name Role Phone Adriane Marte MD Primary Care Provider [phone] Alvaro Alaniz MD Unavailable [phone] Encounter Details Date Type Department Care Team ([facility] st Contact Info) Description 11/28/[address] [facility] [address] [place], [place] [phone] Adriane Marte MD [address] [place], [place] [phone] Social History Tobacco Use Types Packs/Day Years [...] 11:00 AM EDT Office Visit [facility] [address] [place] [address] Adriane Marte MD [address] [place] [address] documented as of this encounter Procedures Procedure [...] on filedocumented in this encounter Care Teams Credit Report Checker Relationship Specialty Start Date End Date Adriane Marte MD [address] [place] [address] PCP - General Family Medicine 01/08/14 Alvaro Alaniz MD [address]rd [place] [address] Gastroenterology 06/28/24 documented as of this encounter
== END 2024-08-27 10:56 | disposition home or self-care (01) ==
LOC: HO.HOSX 10:55
PROVIDERS: Visit Provider Orthopaedic Surgery
DX: Z13.89 Encounter for screening for other disorder (principal)

== ENCOUNTER 2024-11-30 09:58 | Outpatient (REF) | payer OTHER, SELFPAY ==
--- OUTSIDE RECORDS SUMMARY | 2024-11-30 10:56 | XMS_ITS | Encounter Summary ---
Author Organization [employer] Address [address] [place] [address] 7t [place] [address] Care Team Providers Care Pasting Machine Offbearer Name Role Phone Adriane Marte MD Primary Care Provider [phone] Alvaro Alaniz MD Unavailable [phone] Teresa Dickinson PharmD Unavailable Reason for Visit * Reason Comments Med Refill Encounter Details Date Type Department Care Team (Late st Contact Info) Description 07/18/[address] [facility] [address] [place] [address] Adriane Marte MD [address] [place], [place] [phone] Social History Tobacco Use Types Packs/Day Years [...] Care Team (Late st Contact Info) Description 01/12/2025 10:30 AM EDT Medication Management [facility] [address] [place] [phone] Teresa Dickinson, PharmD [address] [place] [address] 02/17/2025 11:15 AM EDT Office Visit [facility] [address] [place] [address] Adriane Marte MD [address] [place] [address] documented as of this encounter Visit Diagnoses Not on filedocumented in this encounter Care Teams Pasting Machine Offbearer Relationship Specialty Start Date End Date Adriane Marte MD [address] [place] [address] [phone] PCP - General Family Medicine 01/08/14 Alvaro Alaniz MD [address] [place] [address] Drive 3rd [place] [address] Gastroenterology 06/28/24 Teresa Dickinson, PbD [address] [place] [phone] Pharmacist Internal Medicine 10/27/24 documented as of this encounter
== END 2024-11-30 09:59 | disposition home or self-care (01) ==
LOC: HO.MAMMO 09:58
PROVIDERS: PCP Family Medicine; Visit Provider Family Medicine
DX: Z12.31 Encounter for screening mammogram for malignant neoplasm of breast (principal)
CPT/HCPCS: 77063; 77067

== ENCOUNTER → 2024-11-30 10:00 | Outpatient (BNV) | payer OTHER, SELFPAY | PROVIDERS: PCP Family Medicine; Visit Provider Internal Medicine | DX: Z12.31 Encounter for screening mammogram for malignant neoplasm of breast (principal) | CPT/HCPCS: 77063; 77067 ==

== ENCOUNTER 2025-02-17 11:59 | Outpatient (REF) | payer OTHER, SELFPAY ==
--- NOTE | ~2025-02-17 | XR_ITS ---
Exam: Three-view bilateral hand x-rays TECHNIQUE: AP, ball-catcher's, and lateral view bilateral hands INDICATION: Hand pain. Morning pain in the DIP joints Prior: None FINDINGS: Right hand: There is mild narrowing of the IP joint of the thumb. There is moderate narrowing of the DIP joints of the second, third, and fifth digits and mild narrowing of the fourth. PIP joint spaces are preserved. MCP joint spaces are preserved. There is degenerative cystic change involving the third and minimally of the fifth DIP joint. Small marginal osteophytes are present at the first IP joint and second, third, and fifth DIP joints. There are no soft tissue calcifications or bony erosions. Left hand: DIP joints demonstrate mild to moderate narrowing with marginal osteophytes most advanced at the second and third digits. PIP joint spaces are preserved without osteophytes. MCP joints are unremarkable as well. Transverse) unremarkable. No soft tissue calcifications are evident. No erosions are seen. 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 Electronically signed by: Gera Connor MD 02/17/2025 01:18 PM EDT
--- OUTSIDE RECORDS SUMMARY | 2025-02-17 11:15 | XMS_ITS | Encounter Summary ---
Author Organization [employer] Address [address] [facility] 7[address] [place] [address] Care Team Providers Care Emergency Medical Service Manager Name Role Phone Adriane Marte MD Primary Care Provider [phone] Alvaro Alaniz MD Unavailable [phone] Teresa Dickinson PharmD Unavailable Reason for Visit * Reason Comments Follow-up Encounter Details Date Type Department Care Team (Late st Contact Info) Description 02/17/2025 11:15 AM EDT Office Visit [facility] MED[facility]INE [address] [place], [place] [id number] Adriane Marte MD [address] [place], [place] [phone] Primary hypertension (Primary Dx); Acute URI; Pain in hand and fingers Social History Tobacco Use Types Packs/Day Years Used Date Smoking Tobacco: Never Smokeless Tobacco: Never Depression Answer Date Recorded Patient Health Questionnaire-9 Score 0 07/15/2024 Patient Health Questionnaire-9 Score 0 07/15/2024 Last PHQ-9: Questionnaire Data Not on file 0 07/15/2024 Housing Stability Answer Date Recorded What is your housing situation today? I have mi jo 07/15/[address] you li [...] Sign Reading Time Taken Comments Blood Pressure 120/82 02/17/2025 11:47 AM EDT Pulse 70 02/17/2025 11:34 AM EDT Temperature 36.1 C (96.9 F) 02/17/2025 11:34 AM EDT Respiratory Rate 20 02/17/2025 11:34 AM EDT Oxygen Saturation 96% 02/17/2025 11:34 AM EDT Inhaled Oxygen Concentration - - Weight 82 kg (180 lb 12.8 oz) 02/17/2025 11:34 A M EDT Height 160 cm (5' 3 ) 02/17/2025 11:34 AM EDT Body Mass Index 32.03 02/17/2025 11:34 AM EDT documented in this encounter Progress Notes * Adriane Marte MD - 02/17/2025 11:15 AM EDT Subjective Patient ID: Ashley Pimentel is a 54 y.o. female with past medical history of asthma and hypertension who presents for follow-up BP check. Pt reports blood pressures at home have been controlled on Amlodipine 2.5mg and [id number] daily. Only concern is URI symptoms for a few days (exposed to COVID with mom) and pain in DIP joints in the morning that improve as the day goes on. y. Review of Systems Constitutional: Negative for fever and unexpected weight change. Respiratory: Negative for shortness of breath. Cardiovascular: Negative for chest pain. Gastrointestinal: Negative for abdominal pain. Genitourinary: Negative for difficulty urinating. Objective Visit Vitals BP 120/82 Pulse 70 Temp 96.9 ??F (36.1 ??C) (Oral) Resp 20 Ht 5' 3 (1.6 m) Wt 180 lb 12.8 oz (82 kg) SpO2 96% BMI 32.03 kg/m?? Smoking Status Never BSA 1.91 m?? Physical Exam Constitutional: Appearance: Normal appearance. Cardiovascular: Rate and Rhythm: Normal rate and regular rhythm. Heart sounds: Normal heart sounds. Pulmonary: Effort: Pulmonary effort is normal. Breath sounds: Normal breath sounds. Musculoskeletal: Cervical back: Normal range of motion and neck supple. Comments: Nodular deformity, mild at DIP joints without pain or swelling. Neurological: General: No focal deficit present. Mental Status: She is alert. Psychiatric: Behavior: Behavior normal. No visits with results within 4 Month(s) from this visit. Latest known visit with results is: Office Visit on 07/15/2024 Component Date Value Creatinine, Urine 07/28/2024 208.71 Microalbumin Urine 07/28/2024 21.0 Microalbum Creatinine Ra* 07/28/2024 10.0 Bilirubin, Total 07/28/2024 0.5 Bilirubin, Direct 07/28/2024 0.2 Aspartate Amino Transfer* 07/28/2024 25 Alanine Aminotransferase 07/28/2024 13 Total Protein 07/28/2024 7.5 Albumin Level 07/28/2024 4.1 Alkaline Phosphatase 07/28/2024 68 Triglycerides 07/28/2024 80 Cholesterol 07/28/2024 140 LDL Cholesterol Calculat* 07/28/2024 78 HDL Cholesterol 07/28/2024 46 Sodium 07/28/2024 142 Potassium 07/28/2024 3.9 Chloride 07/28/2024 105 Carbon Dioxide 07/28/2024 26 Anion Gap 07/28/2024 15 Urea Nitrogen (BUN) 07/28/2024 13 Creatinine, Serum 07/28/2024 0.69 Estimated Glomerular Enoch* 07/28/2024 >60 Glucose 07/28/2024 103 Calcium 07/28/2024 9.0 Vitamin D 25-OH Total 07/28/2024 42.1 White Blood Count 07/28/2024 8.3 Red Blood Count 07/28/2024 4.45 Hemoglobin 07/28/2024 12.8 Hematocrit 07/28/2024 39.1 Mean Corpuscular Volume 07/28/2024 87.9 Mean Corpuscular Hemoglo* 07/28/2024 28.8 Mean Corpuscular HGB Conc 07/28/2024 32.7 Red Cell Distribution Wi* 07/28/2024 12.4 Platelet Count 07/28/2024 307 Mean Platelet Volume 07/28/2024 11.4 Neutrophils Percent Auto 07/28/2024 59.4 Imm Gran Pct Auto 07/28/2024 0.2 Lymphocytes Percent Auto 07/28/2024 27.3 Monocytes Percent Auto 07/28/2024 6.7 Eosinophils Percent Auto 07/28/2024 5.6 (H) Basophils Percent Auto 07/28/2024 0.8 NRBC Pct Auto 07/28/2024 0.0 Neutrophils Absolute Auto 07/28/2024 4.9 Imm Gran Abs Auto 07/28/2024 0.02 Lymphocytes Absolute Au* 07/28/2024 2.3 Monocytes Absolute Auto 07/28/2024 0.6 Eosinophils Absolute Auto 07/28/2024 0.5 (H) Basophils Absolute Auto 07/28/2024 0.1 NRBC Abs Auto 07/28/2024 0.000 TSH reflex Free T4 07/28/2024 0.73 Vitamin B12 07/28/2024 447 Folate 07/28/2024 11.3 Assessment & Plan Primary hypertension -Blood pressure is at goal. -Continue lifestyle modifications -Continue current medications Orders: Hepatic Function Panel; Future Lipid Panel, Standard; Future Basic Metabolic Panel; Future Acute URI -No evidence of respiratory distress. Symptoms mild. -No evidence of dehydration. -Supportive care advised. -Isolation recommendations discussed. -ER precautions discussed. -Seek medical attention for worsening symptoms. Orders: POCT Influenza A manually resulted POCT Influenza B manually resulted POCT Rapid COVID Ag POCT rapid strep A manually resulted Pain in hand and fingers Given joint deformity and morning symptoms, will order x rays and labs to evaluate for possible RA. Orders: ERIC Screen,IFA, with Reflex to Titer and Pattern; Future Rheumatoid Factor; Future Sed Rate by Modified Westergren; Future XR Hand 3+ Views Left; Future XR Hand 3+ Views Right; Future Follow up in about 6 months (around 08/20/2025) for physical. documented in this encounter Miscellaneous Notes * Assessment & Plan Note - Adriane Marte MD - 02/17/2025 11:15 AM EDT Associated Problem(s): Primary hypertension -Blood pressure is at goal. -Continue lifestyle modifications -Continue current medications Orders: Hepatic Function Panel; Future Lipid Panel, Standard; Future Basic Metabolic Panel; Future documented in this encounter Plan of Treatment Scheduled Orders Name Type Priority Associated Diagnoses Orde r Schedule Hepatic Function Panel Lab Routine Primary hypertension Expected: 08/20/2025 (Approximate), Expires: 02/17/2026 Lipid Panel, Standard Lab Routine Primary hypertension Expected: 02/17/2025 (Approximate), Expires: 08/20/2025 Basic Metabolic Panel Lab Routine Primary hypertension Expected: 02/17/2025 (Approximate), Expires: 08/20/2025 ERIC Screen,IFA, with Reflex to Titer and Pattern Lab Routine Pain in hand and fingers Expected: 02/17/2025 (Approximate), Expires: 02/17/2026 Rheumatoid Factor Lab Routine Pain in hand and fingers Expected: 02/17/2025, Expires: 02/17/2026 Sed Rate by Modified Westergren Lab Routine Pain in hand and fingers Expected: 02/17/2025, Expires: 02/17/2026 XR Hand 3+ Views Left Imaging Routine Pain in hand and fingers Expected: 02/17/2025, Expires: 02/17/2026 XR Hand 3+ Views Right Imaging Routine Pain in hand and fingers Expected: 02/17/2025, Expires: 02/17/2026 documented as of this encounter Procedures Procedure Name Priority Date/Time Associated Diagnosis Comments POCT INFLUENZA A Routine 02/17/2025 12:1 3 PM EDT Acute URI POCT INFLUENZA B Routine 02/17/2025 12:1 2 PM EDT Acute URI POCT RAPID COVID ANTIGEN Routine 02/17/2025 12:11 PM EDT Acute URI POCT RAPID STREP A Routine 02/17/2025 12 :10 PM EDT Acute URI documented in this encounter Results * POCT Influenza A manually resulted (02/17/2025 12:13 PM EDT) Pathologist [facility] [place] Rapid Influenza A Ag Negative Negative, Indeterminate QC Media Lot # [id number] Lot# Expiration Date Swab Nasopharyngeal structure / Unknown 02/17/2025 12:13 PM EDT Adriane Marte MD POINT OF CARE TEST ENTER/E DIT ORDERABLES Final Result * POCT Influenza B manually resulted (02/17/2025 12:12 PM EDT) [facility] Rapid Influenza B Ag Negative Negative, Indeterminate QC Media Lot # [id number] Lot# Expiration Date [id number] Swab 02/17/2025 12:1 2 PM EDT Adriane Marte MD POINT OF CARE TEST ENTER/E DIT ORDERABLES Final Result * POCT Rapid COVID Ag (02/17/2025 12:11 PM EDT) [facility] Rapid COVID Ag Negative QC Media Lot # [id number] Lot# Expiration Date Swab 02/17/2025 12:1 1 PM EDT us Adriane Marte MD POINT OF CARE TEST ENTER/E DIT ORDERABLES Final Result * POCT rapid strep A manually resulted (02/17/2025 12:10 PM EDT) Rapid Strep A Screen Negative Negative, None Detected QC Media Lot # [id number] Lot# Expiration Date ,477 Swab 02/17/2025 12:1 0 PM EDT Adriane Marte MD POINT OF CARE TEST ENTER/E DIT ORDERABLES Final Result documented in this encounter Visit Diagnoses Diagnosis Primary hypertension- Primary Unspecified essential hypertension Acute URI Acute upper respiratory infections of unspecified site Pain in hand and fingers documented in this encounter Additional Health Concerns Assessment Noted Time PHQ-9 Depression Total Score: 0 07/15/19 2:27 PM EST documented as of this encounter Care Teams Emergency Medical Service Manager Relationship Specialty Start Date End Date Adriane Marte MD [address] [place] [phone] PCP - General Family Medicine 01/08/14 Alvaro Alaniz MD [address] [place] [address] Drive [address] [place] [address] Gastroenterology 06/28/24 Teresa Dickinson, Abdiel [address] [place] [phone] Pharmacist Internal Medicine 10/27/24 documented as of this encounter
--- OUTSIDE RECORDS SUMMARY | 2025-02-17 12:46 | XMS_ITS | Encounter Summary ---
Author Organization [facility] Address [address] [place] [address] 7[address] [place] [address] Care Team Providers Care Health Physicist Name Role Phone Adriane Marte MD Primary Care Provider + [phone] Alvaro Alaniz MD Unavailable [phone] Teresa Dickinson PharmD Unavailable Reason for Visit * Reason Comments Med Refill Encounter Details Date Type Department Care Team (Late st Contact Info) Description 07/18/2022 Refill [facility] MED[facility] [address] [place] [address] Adriane Marte MD [address] [place] [address] Social History Tobacco Use Types Packs/Day Years Used Date Smoking Tobacco: Never Assessed Comments Unknown Sex and Gender Information Value Date Recorded Sex Assigned at Female 04/23/2022 10:14 AM EDT Legal Sex Female 10:14 AM EDT Gender Identity Female 04/23/2022 10:14 AM EDT Sexual Orientation Straight 04/23/2022 10 :14 AM EDT documented as of this encounter Plan of Treatment Not on file documented as of this encounter Visit Diagnoses Not on filedocumented in this encounter Care Teams Health Physicist Relationship Specialty Start Date End Date Adriane Marte MD [address] [place] [phone] PCP - General Family Medicine 01/08/14 Alvaro Alaniz MD [address] [place] [address] [address] [place] [address] Gastroenterology 06/28/24 Teresa Dickinson, PharmD [address] [place] [phone] Pharmacist Internal Medicine 10/27/24 documented as of this encounter
--- OUTSIDE RECORDS SUMMARY | 2025-02-17 12:46 | XMS_ITS | Clinical Summary ---
Author Organization [facility] Address [address] [place] [address] Care Team Providers Care Rouge Miller Name Role Phone Unavailable Primary Care Provider [...] Vaccines (1 of 2) 10/05/2021 COVID-19 Vaccine (1 - 2023-2 5 season) 2024 Depression Screening 06/24/2024 Influenza Vaccine (#1) 2025 HIB Vaccines Aged Out No longer eligi [...] age to complete this topic Meningococcal B Vaccine Aged Out No l onger eligible based on patient's age to complete this topic RSV Immunization Patients Un david 20 months Aged Out No longer eligible b ased on patient's age to complete this topic Varicella Vaccines Aged Out No longer eligible based on patient's age to complete this topic
--- OUTSIDE RECORDS SUMMARY | 2025-02-17 12:46 | XMS_ITS | Encounter Summary ---
Author Organization [employer] Address [address] [facility] [address]t [place] [address] Care Team Providers Care Laboratory Specialist Name Role Phone Adriane Marte MD Primary Care Provider + [phone] Alvaro Alaniz MD Unavailable [phone] Teresa Dickinson PharmD Unavailable Encounter Details Date Type Department Care Team (Late st Contact Info) Description 10/25/2022 Orders Only [facility] MED & PEDS [address] [place] [address] Mimi Huerta LPN Social History Tobacco Use [...] on filedocumented in this encounter Care Teams Laboratory Specialist Relationship Specialty Start Date End Date Adriane Marte MD [address] [place] [address] PCP - General Family Medicine 01/08/14 Alvaro Alaniz MD [address] [place] [address] Gastroenterology 06/28/24 Treesa Dickinson, PharmD [address] [place] [address] Pharmacist Internal Medicine 10/27/24 documented as of this encounter
--- OUTSIDE RECORDS SUMMARY | 2025-02-17 12:46 | XMS_ITS | Clinical Summary ---
Author Organization [employer] Address [address] [facility] 7t [place] [address] Care Team Providers Care Lithographic Platemaker Name Role Phone Adriane Marte MD Primary Care Provider [phone] Alvaro Alaniz MD Unavailable [phone] Teresa Dickinson PharmD Unavailable Allergies Active Allergy Reactions Criticality Noted Date Comments Lidocaine 12/09/2017 Medications fluticasone (Flonase) 50 MCG/ACT nasal sprayIndications: Seasonal allergies Administer 1-2 sprays into each nostril Once per day. Shake gently. Before first use, prime pump. After use, clean tip and replace cap. 16 g 2 5 07/15/19 26 Active hydroCHLOROthiazi de (HYDRODiuril) 25 MG tabletIndications :Primary hypertension TAKE 1 TABLET BY MOUTH EVERY DAY 90 tablet 3 5 Active amLODIPine (Norvasc) 2.5 MG tabletIndications :Primary hypertension Take 1 tablet by mouth once daily 30 tablet 1 5 Active Vitamin D High Potency 25 MCG (1000 UT) capsuleIndication s:Vitamin D deficiency TAKE 1 CAPSULE (25 MCG) BY MOUTH ONCE PER DAY. 90 capsule 5 Active Active Problems Problem Noted Date Diagnosed Date Overweight 07/15/2024 Overview (10/19/2024): -ordered routine labs 07/15/24 that were unremarkable. Discussed weight, diet, exercise with patient in relation to health conditions. Used motivational interviewing to illicit change talk and established initial goals with patient. Assessment & Plan (10/19/2024 3:32 PM EDT): -ordered routine labs 07/15/24 that were unremarkable. Discussed weight, diet, exercise with patient in relation to health conditions. Used motivational interviewing to illicit change talk and established initial goals with patient. Assessment & Plan (07/15/2024 2:50 PM EST): -ordered routine labs 07/15/24 Seasonal allergies 07/15/2024 Overview (07/15/2024): Controlled on fluticasone (Flonase) 50 MCG/ACT nasal spray Assessment & Plan (07/15/2024 2:38 PM EST): Controlled on fluticasone (Flonase) 50 MCG/ACT nasal spray Other fatigue 07/15/2024 Overview (10/19/2024): -ordered routine labs 07/15/24 that were unremarkable. Assessment & Plan (10/19/2024 3:32 PM EDT): -ordered routine labs 07/15/24 that were unremarkable. Assessment & Plan (07/15/2024 3:07 PM EST): [...] weeks 07/15/24. Vitamin D deficiency 07/15/2024 Overview (10/19/2024): Lab Results Component Value Date KUTT88NZJVP 42.1 07/28/2024 JHOB31SKQVX 37.4 07/12/2023 -ordered repeat lab 07/15/24 -prescribed cholecalciferol (D3-1000) 25 MCG (1000 UT) capsule 07/15/24 Assessment & Plan (07/15/2024 3:06 PM EST): Lab Results Component Value Date [id number] 37.4 07/12/2023 -ordered repeat lab 07/15/24 -prescribed cholecalciferol (D3-1000) 25 MCG (1000 UT) capsule 07/15/24 Primary hypertension 06/28/2024 Overview (02/17/2025): -Blood pressure is at goal. Reports uncontrolled at home. -Continue lifestyle modifications -Continue current medications -restarted hydroCHLOROthiazide (HYDRODiuril) 25 MG 07/15/24 -Start amLODIPine (Norvasc) 5 MG 10/19/24; patient reports ARJUN of weakness with 5mg, currently taking 2.5mg once daily -last seen in [facility] clinic 11/10/24 Assessment & Plan (02/17/2025 12:00 PM EDT): -Blood pressure is at goal. -Continue lifestyle modifications -Continue current medications Orders: Hepatic Function Panel; Future Lipid Panel, Standard; Future Basic Metabolic Panel; Future Assessment & Plan (10/19/2024 3:33 PM EDT): -Blood pressure is not at goal. Reports uncontrolled at home. -Continue lifestyle modifications -Continue current medications -restarted hydroCHLOROthiazide (HYDRODiuril) 25 MG 07/15/24 -Start amLODIPine (Norvasc) 2.5 MG 10/19/24 -referred to [facility] with our PharmD, MIGUEL. 10/19/24 -follow-up in 3 months Assessment & Plan (07/15/2024 3:32 PM EST): [...] interventions discussed. -ordered FLP and HFP 07/15/24 Plantar fasciitis 07/04/2023 Other specified health status 04/12/2023 Overview (07/15/2024): -next comprehensive annual evaluation due after 07/15/25 -eye care facilitated by [facility] -healthcare proxy paper given 07/04/23, filed 07/15/24 Assessment & Plan (07/15/2024 2:30 PM EST): -next comprehensive annual evaluation due after 07/15/25 -eye care facilitated by [facility] -healthcare proxy paper given 07/04/23, filed 07/15/24 Assessment & Plan (07/04/2023 11:08 AM EST): -next physical exam due after 07/04/24 -eye care facilitated by [facility] -healthcare proxy paper given 07/04/23 Colon cancer screening 04/12/2023 Overview (07/04/2023): colonoscopy done 05/23/23 with harman [facility] repeat in 10 years Assessment & Plan [...] Problem Noted Date Diagnosed Date Resolved Date Exercise counseling 07/15/2024 02/18/20 25 Assessment & Plan (10/19/2024 3:32 PM EDT): Exercise Recommendations: At least 150 minutes of moderate-intensity physical activity per week, or an equivalent combination of moderate- and vigorous-intensity activity Assessment & Plan (07/15/2024 2:24 PM EST): Exercise Recommendations: At least 150 minutes of moderate-intensity physical activity per week, or an equivalent combination of moderate- and vigorous-intensity activity Dietary counseling 07/15/2024 Assessment & Plan (10/19/2024 3:32 PM EDT): Dietary Recommendations: Fruits, vegetables, whole grains, protein foods, and fat-free or low-fat dairy products are healthy choices. Eat different types of protein foods in your diet. This can include seafood, lean meats, poultry, beans, peas, lentils, nuts, seeds, soy products, and eggs. Limit foods and beverages higher in added sugars, saturated fat, and sodium. Assessment & Plan (07/15/2024 2:24 PM EST): Dietary Recommendations: Fruits, vegetables, whole grains, protein foods, and fat-free or low-fat dairy products are healthy choices. Eat different types of protein foods in your diet. This can include seafood, lean meats, poultry, beans, peas, lentils, nuts, seeds, soy products, and eggs. Limit foods and beverages higher in added sugars, saturated fat, and sodium. Anemia 12/13/2011 04/12/2023 07/15/2024 Overview (07/15/2024): Lab Results Component Value Date HGB 13.2 07/12/2023 HGB 13.1 05/21/2022 HGB 13.0 09/23/2020 HEMATOCRIT 38.4 05/21/2022 HEMATOCRIT 38.0 09/23/2020 Encounters Date Type Department Care Team Description 02/17/2025 11:15 AM EDT Office Visit [facility] [address] [place] [address] Adriane Marte MD Primary hypertension (Primary Dx); Acute URI; Pain in hand and fingers 02/17/2025 Travel 02/16/2025 Travel 02/16/2025 Telephone [facility] [address] [place] [address] Adriane Marte MD CHART PREP 01/21/2025 Telephone [facility] [address] [place] [address] [phone] Adriane Marte MD 12/12/[address] [phone] Adriane Marte MD Vitamin D deficiency 11/30/2024 Orders Only [facility] [address] [place] [address] Adriane Marte MD from Last 3 Months Immunizations Immunization Administration Dates Next Due Hep A, Adult 02/24/2015 Hep B, Adolescent or Pediatric 11/11/2000,1998,11/28/1998 Hep B, adult 10/19/2024,07/15/2024,07/04/2023 Influenza Injectable Quadriv alant Preservative Free IIV4 [...] Mass Index 32.03 02/17/2025 11:34 AM EDT Plan of Treatment Health Maintenance Due Date Last Done Comments CT Colonography 1971 FIT DNA/Cologuard 1971 FIT 1971 FOBT 1970 Sigmoidoscopy 1970 Influenza Vaccine (#1) 2025 , 03/19/2023, 03/23/2022, Additional history exists Pap Smear 05/21/2025 05/21/2022 Alcohol/Substance Use Screening 07/15/2025 07/15/2024 COVID-19 Vaccine ( season) 2025 06/27/2021, 12/21/2020, 11/30/2020 Postponed from 02/23/2024 (Patient Refused) Depression Screening 07/15/2025 07/15/2024, 07/15/19 SDOH Screening 07/15/2025 07/15/2024 Disability Screening 02/16/2026 02/16/2025 Tobacco Screening 02/17/2026 02/17/2025 Mammogram 11/30/2026 11/30/2024, 06/0 11/2023, 11/25/2023, Additional history exists Cervical Cancer Screening 05/21/2027 [...] this topic Zoster Vaccines Completed 07/23/2022, 05/21/2022 Pneumococcal Vaccine: 50+ Years Completed 07/15/2024 Hepatitis B Vaccines Completed 10/19/2024, 07/15/2024, 07/04/2023, Additional history exists HIB Vaccines Aged Out No longer eligi [...] 02/17/2025 12 :10 PM EDT Acute URI BI MAMMOGRAM SCREENING TOMOSYNTHESIS BILATERAL Routine 11/30/2024 10:08 AM EDT LIPID PANEL, STANDARD Routine 07/28/2024 8:42 AM EST Class 1 obesity with body mass index (BMI) of 31.0 to 31.9 in adult, unspecified obesity type, unspecified whether serious comorbidity present HM COLONOSCOPY Routine 05/23/2023 THINPREP IMAGING PAP AND HPV MRNA E6/E7, WITH CT/NG, TRICHOMONAS Routine 05/21/2022 12:12 PM EST HM HEPATITIS C ANTIBODY Routine 12/19/2012 HM HIV 1/2 ANTIGEN AND ANTIBODY Routine 12/19/2012 from Last 3 Months or Most Recently Relevant to Health Maintenance Results * POCT Influenza A manually resulted (02/17/2025 12:13 PM EDT) [facility] Rapid Influenza A Ag Negative Negative, Indeterminate QC Media Lot # [id number] Lot# Expiration Date Swab Nasopharyngeal structure / Unknown 02/17/2025 12:13 PM EDT Result [facility] Adriane Marte MD POINT OF CARE TEST ENTER/E DIT ORDERABLES Final Result * POCT Influenza B manually resulted (02/17/2025 12:12 PM EDT) [facility] Rapid Influenza B Ag Negative Negative, Indeterminate QC Media Lot # [id number] Lot# Expiration Date Swab 02/17/2025 12:1 2 PM EDT Result [facility] Adriane Marte MD POINT OF CARE TEST ENTER/E DIT ORDERABLES Final Result * POCT Rapid COVID Ag (02/17/2025 12:11 PM EDT) [facility] Rapid COVID Ag Negative QC Media Lot # [id number] Lot# Expiration Date Swab 02/17/2025 12:1 1 PM EDT Result [facility] Adriane Marte MD POINT OF CARE TEST ENTER/E DIT ORDERABLES Final Result * POCT rapid strep A manually resulted (02/17/2025 12:10 PM EDT) [facility] Rapid Strep A Screen Negative Negative, None Detected QC Media Lot # [id number] Lot# Expiration Date Swab 02/17/2025 12:1 0 PM EDT Result [facility] us Adriane Marte MD POINT OF CARE TEST ENTER/E DIT ORDERABLES Final Result * BI Mammogram Screening Tomosynthesis Bilateral (11/30/2024 10:08 AM EDT) Anatomical Region Laterality Modality Breast Bilateral Mammography 11/30/2024 10:0 8 AM EDT Narrative 12/07/2024 8:57 AM EDT [facility] [address] [place] [address] Mammography Report Signed Patient: Ashley Pimentel MR#: [id number] : 1970 Acct:[id number] Age/Sex: 54 / F ADM Date: 11/30/24 Loc: HO.MAMMO Attending Dr: Adriane Marte MD Ordering Physician: Adriane Marte MD Results: 2B enign Findings Date of Service: 11/30/24 Follow Up: 1 Year From Orig ina Mammogram Procedure(s): MM tomosynthesis screening BI Accession Number(s): [id number] cc: Adriane Marte MD EXAMINATION: MM SCREENING DIGITAL BREAST TOMOSYNTHESIS, BILATERAL CLINICAL INFORMATION: Screening. Asymptomatic. COMPARISON: Mammography: Comparison is made with available priors TECHNIQUE: Digital breast mammography with tomosynthesis is performed in both the craniocaudal and mediolateral oblique views along with computer-aided detection (CAD). FINDINGS: There are scattered areas of fibroglandular density (ACR BI-RADS breast composition Category b). Bilateral circumscribed oval masses which wax and wane consistent with benign fibrocystic changes. Some simple cysts and normal lymph nodes were seen on prior ultrasounds. There are no significant masses, abnormal calcifications, or other abnormalities. MM/MM tomosynthesis screening BI IMPRESSION: No mammographic evidence of malignancy. ASSESSMENT: BI-RADS BI-RADS 2 - Benign Findings RECOMMENDATION: Routine annual mammography screening. 1 year F/U This examination should not preclude the clinical evaluation of a suspicious palpable abnormality. This patient's information was entered into a reminder system with a target due date for their next mammogram. Electronically signed by: Sera Ornelas DO 12/07/2024 08:54 AM EDT Dictated By: Sera Ornelas DO Signed By: <Electronically signed by Sera Ornelas DO in OV> 12/07/24 0854 DD/ 1008 TD/TT: 11/30/24 1030 C4 Planner: Procedure Note Donotuseinterpreter, Image - 12/07/2024 [facility] [address] [place] [address] Mammography Report Signed Patient: Ashley PimentelMR#: [id number] : 1970Acct:[id number] Age/Sex: 54 / FADM Date: 11/30/24 Loc: HO.MAMMO Attending Dr: Adriane Marte MD Ordering Physician: Adriane Marte MDResults: 2B enign Findings Date of Service: 11/30/24Follow Up: 1 Year From Orig ina Mammogram Procedure(s): MM tomosynthesis screening BI Accession Number(s): [id number] cc: Adriane Marte MD EXAMINATION: MM SCREENING DIGITAL BREAST TOMOSYNTHESIS, BILATERAL CLINICAL INFORMATION: Screening. Asymptomatic. COMPARISON: Mammography: Comparison is made with available priors TECHNIQUE: Digital breast mammography with tomosynthesis is performed in both the craniocaudal and mediolateral oblique views along with computer-aided detection (CAD). FINDINGS: There are scattered areas of fibroglandular density (ACR BI-RADS breast composition Category b). Bilateral circumscribed oval masses which wax and wane consistent with benign fibrocystic changes. Some simple cysts and normal lymph nodes were seen on prior ultrasounds. There are no significant masses, abnormal calcifications, or other abnormalities. MM/MM tomosynthesis screening BI IMPRESSION: No mammographic evidence of malignancy. ASSESSMENT: BI-RADS BI-RADS 2 - Benign Findings RECOMMENDATION: Routine annual mammography screening. 1 year F/U This examination should not preclude the clinical evaluation of a suspicious palpable abnormality. This patient's information was entered into a reminder system with a target due date for their next mammogram. Electronically signed by: Sera Ornelas DO 12/07/2024 08:54 AM EDT Dictated By: Sera Ornelas DO Signed By: <Electronically signed by Sera Ornelas DO in OV> 12/07/24 0854 DD/ 1008 TD/TT: 11/30/24 1030 C4 Planner: Adriane Marte MD IMG BI PROCEDURES Edited R esult - Final * Lipid Panel, Standard (07/28/2024 8:42 AM EST) Triglycerides 80 <150 mg/dL [facility] Comment:Desirable Triglyceri de: less than 150 mg/dLBorderline High Triglyceride 150-199 mg/dLHigh Triglyceride: 200-499 mg/dLVery High Triglyceride: greater than or equal to 5OO mg/dL Cholesterol 140 <200 mg/dL [facility] Comment:Desirable Cholestero l: less than 200 mg/dLBorderline High Cholesterol: 200-239 mg/dLHigh Cholesterol: greater than 239 mg/dL LDL Cholesterol Calculated 78 <100 mg/dL [facility] Comment:Desirable LDL: less than 100 mg/dLNear Optimal/Above Optimal LDL: 110- 129 mg/dLBorderline High LDL: 130-159 mg/dLHigh LDL: 160-189 mg/dLVery High LDL: greater than or equal to 190 mg/dL HDL Cholesterol 46 >40 mg/dL [facility] Comment:Desirable HDL: great er than 40 mg/dL Note: This HDL assay may give artificially low results in patients with liver disease. Blood Venous blood specimen / Unknown 07/28/2024 8:42 AM EST 07/28/2024 11:27 AM EST Adriane Marte MD LAB BLOOD ORDERABLES Final Result [facility] [address] [place] [phone] * Hm Colonoscopy (05/23/2023) Pathologist [facility] Colonoscopy Normal Normal Comment:with Dr. Alaniz Historical Provider HEALTH MAINTENANCE Final Result * THINPREP TIS PAP AND HPV mRNA E6/E7, CT/NG, TRICH (05/21/2022 12:12 PM EST) Chlamydia trachomatis RNA, TMA, Urogenital NOT DETECTED NOT DETECTED [facility] Clinical Information: None given [facility]ED [facility] COMMENT SEE COMMENT CONVERTE D [facility] Comment: The analytical performance characteristics of this assay, when used to test SurePath(TM) specimens have been determined by [facility]. The modifications have not been cleared or approved by the FDA. This assay has been validated pursuant to the CLIA regulations and is used for clinical purposes. For additional information, please refer to https://education.[employer]/faq/NOR703 (This link is being provided for information/ educational purposes only.) COMMENT SEE COMMENT CONVERTE D [employer] Comment: EXPLANATORY NOTE: The Pap is a screening test for cervical cancer. It is not a diagnostic test and is subject to false negative and false positive results. It is most reliable when a satisfactory sample, regularly obtained, is submitted with relevant clinical findings and history, and when the Pap result is evaluated along with historic and current clinical information. COMMENT: This Pap test has been evaluated with computer assisted technology. CONVERTED [employer] Wheat Farmer: SEE COMMENT [facility] Comment: BK,CT(ASCP) CT screening location: [address] HPV nRNA E6/E7 Not Detected Not Detected CONVERTED [employer] Comment: Methodology: Right Of Way Appraiser-Mediated Amplification This assay detects E6/E7 viral messenger RNA (mRNA) from 14 high-risk HPV types (16,18,31,33,35,39,45,51,52,56,58,59,66,68). Cervical sources are required for HPV testing. If a vaginal source from a patient who has had a total hysterectomy with removal of cervix was submitted, please contact the testing laboratory for alternative testing options. For additional information, please refer to http://Duolingo.[employer]/faq/AMM407m6 (This link if provided for information/ educational [...] of this assay have been determined by [facility]. The modifications have not been cleared or approved by the FDA. This assay has been validated pursuant to the CLIA regulations and is used for clinical purposes. For additional information, please refer to http://education.[employer]/ faq/Trichomonastma (This link is being provided for information/ educational purposes only.) 05/21/2022 12:1 2 PM EST Adriane Marte MD LAB PATHOLOGY ORDERABLES F inal Result [facility] * Hepatitis C Antibody (12/19/2012) Hepatitis C Antibody Nonreactive Blood Historical Provider HEALTH MAINTENANCE Final Result * HIV 1/2 Antigen and Antibody (12/19/2012) HIV Ag/Ab Nonreactive Historical Provider HEALTH MAINTENANCE Final Result from Last 3 Months or Most Recently Relevant to Health Maintenance [place] [address] [place] [address] [employer] Advance Directives Documents on File Type Date Recorded Patient Mail Agent Expl anation Advance Directives and Living Will 07/16/2024 11:13 AM Health Care Proxy Care Teams Lithographic Platemaker Relationship Specialty Start Date End Date [place], MD Adriane [address] [place] [phone] PCP - General Family Medicine 01/08/14 Alvaro Alaniz MD [address] [place] [address] 3rd [place] [address] Gastroenterology 06/28/24 Teresa Dickinson PharmD [address] [place] [phone] Pharmacist Internal Medicine 10/27/24
--- OUTSIDE RECORDS SUMMARY | 2025-02-17 12:46 | XMS_ITS | Encounter Summary ---
Author Organization [employer] Address [address] [facility] 7t [place] [address] Care Team Providers Care Fairmont Gold Attendant Name Role Phone Adriane Marte MD Primary Care Provider [phone] Alvaro Alaniz MD Unavailable [phone] Teresa Dickinson PharmD Unavailable Reason for Visit * Reason Onset Date Comments CHART PREP 02/16/2025 Encounter Details Date Type Department Care Team (Late st Contact Info) Description 02/16/2025 Telephone [facility] [address] [place], [place] [phone] Adriane Marte MD [address] [place], [place] [phone] CHART PREP Social History Tobacco Use Types Packs/Day Years [...] encounter Miscellaneous Notes * Telephone Encounter - Dottie Rosa MA - 02/16/2025 9:44 AM EDT Chart Prep Labs: done Images: done Screenings: Not Applicable Vaccines due: Updated Referrals: Completed Overdue care gaps: GAD7 and Disability documented in this encounter Plan of Treatment Not on file documented as of this encounter Visit Diagnoses Not on filedocumented in this encounter Additional Health Concerns Assessment Noted Time PHQ-9 Depression Total Score: 0 07/15/19 25 2:27 PM EST documented as of this encounter Care Teams Fairmont Gold Attendant Relationship Specialty Start Date End Date Adriane Marte MD [address] [place] [address] PCP - General Family Medicine 01/08/14 Alvaro Alaniz MD [address] [place] [address] [address]rd [place] [address] Gastroenterology 06/28/24 Teresa Dickinson, PbD [address] [place] [phone] Pharmacist Internal Medicine 10/27/24 documented as of this encounter
--- OUTSIDE RECORDS SUMMARY | 2025-02-17 12:46 | XMS_ITS | Encounter Summary ---
Author Organization [employer] Address [address] [facility] [address]t [place] [address] Care Team Providers Care Status Controller Name Role Phone Adriane Marte MD Primary Care Provider [phone] Alvaro Alaniz MD Unavailable [phone] Teresa Dickinson PharmD Unavailable Reason for Visit * Reason Onset Date Comments Med Refill 06/11/2023 Encounter Details Date Type Department Care Team (Late st Contact Info) Description 06/11/2023 Telephone [facility] [address] [place], [place] [phone] Adriane Marte MD [address] [place], [place] [phone] Med Refill Social History Tobacco Use Types [...] 10:37 AM EST Medication was sent to [id number] on 04/24/23 #90 with 1 refill. * Telephone Encounter - Jasson Kelley - 06/11/2023 10:22 AM EST Tc from pt requesting medication refill for D3-1000 25 MCG (1000 UT) capsule documented in this encounter Plan of Treatment Not on file documented as of this encounter Visit Diagnoses Not on filedocumented in this encounter Care Teams Status Controller Relationship Specialty Start Date End Date Adriane Marte MD [address] [place] [phone] PCP - General Family Medicine 01/08/14 Alvaro Alaniz MD [address] [place] [address] 3rd [place] [address] Gastroenterology 06/28/24 Teresa Dickinson, Abdiel [address] [place] [phone] Pharmacist Internal Medicine 10/27/24 documented as of this encounter
--- OUTSIDE RECORDS SUMMARY | 2025-02-17 12:46 | XMS_ITS | Encounter Summary ---
Author Organization [employer] Address [address] [facility] [address] [place] [address] Care Team Providers Care District Loss Prevention Manager Name Role Phone Adriane Marte MD Primary Care Provider [phone] Alvaro Alaniz MD Unavailable [phone] Teresa Dickinson PharmD Unavailable [phone] Encounter Details Date Type Department Care Team (Latest Contact Info) Description 02/16/2025 Travel Social History Tobacco Use Types Packs/Day [...] documented as of this encounter Care Teams District Loss Prevention Manager Relationship Specialty Start Date End Date Adriane Marte MD [address] [place] [address] PCP - General Family Medicine 01/08/14 Alvaro Alaniz MD [address] [place] [address] 3rd [place] [address] Gastroenterology 06/28/24 Teresa Dickinson PharmD [address] [place] [phone] Pharmacist Internal Medicine 10/27/24 documented as of this encounter
--- OUTSIDE RECORDS SUMMARY | 2025-02-17 12:46 | XMS_ITS | Encounter Summary ---
Author Organization [employer] Address [address] [facility] [address] [place] [address] Care Team Providers Care Supervisor Records Change Name Role Phone Adriane Marte MD Primary Care Provider [phone] Alvaro Alaniz MD Unavailable [phone] Teresa Dickisnon PharmD Unavailable Encounter Details Date Type Department Care Team (Late st Contact Info) Description 11/28/2023 Abstract [facility] [address] [place], [place] [id number] Adriane Marte MD [address] [place], [place] [phone] Social History Tobacco Use Types Packs/Day Years Used Date Smoking Tobacco: Never Smokeless Tobacco: Never Housing Stability Answer Date Recorded What is your housing situation today? I have miruth osorio 07/04/[address] you [...] on file documented as of this encounter Procedures Procedure Name Priority Date/Time Associated Diagnosis Comments MAMMOGRAPHY Routine 11/28/2023 3:41 PM EDT documented in this encounter Results * Mammography (11/28/2023 3:41 PM EDT) Mammogram BIRADS 1 Normal, Abnormal, BIRADS 1 , BIRADS 2 Comment:follow uo 1 year Anatomical Region Laterality Modality Other Historical Provider HEALTH MAINTENANCE Final Result documented in this encounter Visit Diagnoses Not on filedocumented in this encounter Care Teams Supervisor Records Change Relationship Specialty Start Date End Date Adriane Marte MD [address] [place] [address] PCP - General Family Medicine 01/08/14 Alvaro Alaniz MD [address] [place] [address] [address] [place] [address] Gastroenterology 06/28/24 Teresa Dickinson, PbD [address] [place] [address] Pharmacist Internal Medicine 10/27/24 documented as of this encounter
--- OUTSIDE RECORDS SUMMARY | 2025-02-17 12:46 | XMS_ITS | Encounter Summary ---
Author Organization [employer] Address [address] [facility] [address] [place] [address] Care Team Providers Care Ent Surgeon Name Role Phone Adriane Marte MD Primary Care Provider [phone] Alvaro Alaniz MD Unavailable [phone] Teresa Dickinson PharmD Unavailable Encounter Details Date Type Department Care Team (Late st Contact Info) Description 05/23/2023 Abstract [facility] [address] [place] [address] Adriane Marte MD [address] [place] [address] Social History Tobacco Use Types Packs/Day Years [...] on filedocumented in this encounter Care Teams Ent Surgeon Relationship Specialty Start Date End Date Oldham, Adriane, MD [address] [place] [address] PCP - General Family Medicine 01/08/14 Alvaro Alaniz MD [address] [place] [address] [address] [place] [address] Gastroenterology 06/28/24 Teresa Dickinson, PbD [address] [place] [address] Pharmacist Internal Medicine 10/27/24 documented as of this encounter
--- OUTSIDE RECORDS SUMMARY | 2025-02-17 12:46 | XMS_ITS | Encounter Summary ---
Author Organization [employer] Address [address] [facility] [address] [place] [address] Care Team Providers Care Metal Sorter Name Role Phone Adriane Marte MD Primary Care Provider [phone] Alvaro Alaniz MD Unavailable Teresa Dickinson PharmD Unavailable [phone] Encounter Details Date Type Department Care Team (Latest Contact Info) Description 02/17/2025 Travel Social History Tobacco Use Types Packs/Day [...] documented as of this encounter Care Teams Metal Sorter Relationship Specialty Start Date End Date Adriane Marte MD [address] [place] [id number] PCP - General Family Medicine 01/08/14 lAvaro Alaniz MD [address] [place] [address] [address] [place] [address] Gastroenterology 06/28/24 Teresa Dickinson PharmD [address] [place] [id number] Pharmacist Internal Medicine 10/27/24 documented as of this encounter
[2025-02-17 14:19] LABS: Alanine Aminotransferase 13 U/L (0-31); Albumin Level 4.6 g/dL (3.5-5.0); Alkaline Phosphatase 79 U/L (39-117); Anion Gap 11 (12-20); Aspartate Amino Transferase 26 U/L (5-31); Blood Urea Nitrogen 19 mg/dL (9-16); Calcium 9.6 mg/dL (8.4-10.2); Carbon Dioxide 29 mmol/L (22-29); Chloride 103 mmol/L (96-108); Cholesterol 155 mg/dL (<200); Estimated Glomerular Filt Rate > 60; HDL Cholesterol 50 mg/dL (>40); Potassium 3.9 mmol/L (3.3-5.1); Sodium 139 mmol/L (135-145); Total Protein 7.7 g/dL (6.5-8.0); Triglycerides 72 mg/dL (<150)
[2025-02-21 13:57] LABS: Anti Nuclear Antibody Screen NEGATIVE (NEGATIVE)
== END 2025-02-17 12:00 | disposition home or self-care (01) ==
LOC: HO.HHCL 11:59
PROVIDERS: PCP Family Medicine; Visit Provider Family Medicine
DX: Z01.84 Encounter for antibody response examination (principal); M79.643 Pain in unspecified hand; M79.646 Pain in unspecified finger(s); I10 Essential (primary) hypertension
CPT/HCPCS: 36415; 73130; 80048; 80061; 80076; 85652; 86038; 86431

== ENCOUNTER → 2025-02-17 12:27 | Outpatient (BNV) | payer OTHER, SELFPAY | PROVIDERS: PCP Family Medicine; Visit Provider Radiology Diagnostic Radiology | DX: M19.049 Primary osteoarthritis, unspecified hand (principal) | CPT/HCPCS: 73130 ==